=== PATIENT | female | born 1950 ===

== ENCOUNTER 2018-03-01 02:26 | Inpatient (IN) | payer MEDICARE, MEDICAID ==
--- NOTE | 2018-03-01 03:02 | C.PDOC ---
History Of Present Illness Pt sent from [place] due to low oxygen saturation,. Pt states that she does not know why she is in the hospital Family states that the nh called for low saturation . Patient denies any discomfort Time Seen by Provider: 03/01/18 03:02 Chief Complaint (Nursing): Shortness Of Breath History Per: Family History/Exam Limitations: other (dementia) Onset/Duration Of Symptoms: Hrs Current Symptoms Are (Timing): Still Present Initiating Event: Upper Respiratory Illness Exacerbating Factor(s): Coughing Current Respiratory Medications: See Home Med List Severity: Moderate Pain Scale Rating Of: 5 Associated Symptoms: Productive Cough. denies: Fever, Chills Reports Recently: Treated By A Physician Recent travel outside of the [place]: No Additional History Per: Family, Longterm Past Medical History Reviewed: Historical Data, Nursing Documentation, Vital Signs Vital Signs: Last Vital Signs Temp 98.3 F 03/01/18 02:34 Pulse 76 03/01/18 02:34 Resp 22 03/01/18 02:51 BP 110/69 03/01/18 02:34 Pulse Ox 93 L 03/01/18 04:27 - Medical History PMH: Anxiety, Dementia, Diverticulitis, HTN, Hyperlipidemia Family History: States: No Known Family Hx - Social History Hx Alcohol Use: No Hx Substance Use: No - Immunization History Hx Tetanus Toxoid Vaccination: No (unknown) Hx Influenza Vaccination: No (unknown) Hx Pneumococcal Vaccination: No (unknown) Review Of Systems Review Of Systems: ROS cannot be obtained secondary to pt's inabilty to answer questions. (dementia) Physical Exam - Physical Exam Appears: Non-toxic Skin: Warm, Dry Head: Normacephalic Eye(s): bilateral: Normal Inspection Oral Mucosa: Moist Teeth: Other (poor dentition) Throat: No Erythema Neck: Supple Chest: Symmetrical Cardiovascular: Rhythm Regular Respiratory: Decreased Breath Sounds, No Rales, Rhonchi, Wheezing (few) Gastrointestinal/Abdominal: Soft, No Tenderness, No Distention Back: No CVA Tenderness Extremity: Normal ROM Extremity: Bilateral: Atraumatic, Normal Color And Temperature, Normal ROM Pulses: Left Dorsalis Pedis: Normal, Right Dorsalis Pedis: Normal Neurological/Psych: Other (aaox2) Gait: Unable To Assess ED Course And Treatment - Laboratory Results Result Diagrams: 03/01/18 03:41 03/01/18 03:41 ECG: Interpreted By Me, Viewed By Me ECG Rhythm: Nonspecific Changes O2 Sat by Pulse Oximetry: 93 Pulse Ox Interpretation: Abnormal - Radiology CXR: Interpreted by Me, Viewed By Me CXR Interpretation: Yes: Infiltrates (rll), Cardiomegaly. No: Fracture, Pnemothorax Critical Care Time - Critical Care Note Total Time (in mins): 30 Documented critical care: time excludes all time spent performing seperately billable procedures. Disposition Discussed With Dr.: Reva Pantoja Comment: accepted the pt onhis service and took over the care at 5:36 AM Doctor Will See Patient In The: Hospital Counseled Patient/Family Regarding: Studies Performed, Diagnosis - Disposition Disposition: HOSPITALIZED Disposition Time: 03:02 Condition: GUARDED Forms: [employer] ([place]) - POA Present On Arrival: None - Clinical Impression Clinical Impression: Dyspnea, Respiratory distress, Pneumonia Decision To Admit - Pt Status Changed To: Hospital Disposition Of: Inpatient - Admit Certification Admit to Inpatient:: After my assessment, the patient will require hospitalization for at least two midnights. This is because of the severity of symptoms shown, intensity of services needed, and/or the medical risk in this patient being treated as an outpatient. - InPatient: Physician Admission Certification: I certify that this patient requires 2 or more midnights of care for the following reason:: After my assessment, the patient will require hospitalization for at least two midnights. This is because of the severity of symptoms shown, intensity of services needed, and/or the medical risk in this patient being treated as an outpatient. - . Bed Request Type: Regular Admitting Physician: Reva Pantoja Patient Diagnosis: Dyspnea, Respiratory distress, Pneumonia
[2018-03-01 03:44] LABS: BASO # 0.1 K/uL (0.0-0.2); BASO % 1.3 % (0.0-2.0); EOS # 0.8 K/uL (0.0-0.7); EOS % 12.5 % (0.0-4.0); HEMOGLOBIN 13.2 g/dL (11.0-16.0); LYMPH # 1.6 K/uL (1.0-4.3); LYMPH % 26.4 % (20.0-40.0); MEAN CELL VOLUME 93.3 fL (81.0-99.0); MEAN CORPUSCULAR HEMOGLOBIN 31.3 pg (27.0-31.0); MEAN CORPUSCULAR HGB CONC 33.6 g/dL (33.0-37.0); MEAN PLATELET VOLUME 10.1 fL (7.2-11.7); MONO # 0.4 K/uL (0.0-0.8); NEUT # 3.2 K/uL (1.8-7.0); NEUT % 52.8 % (50.0-75.0); NRBC % 0.1 % (0.0-2.0); RBC 4.22 Mil/uL (3.80-5.20); RED CELL DISTRIBUTION WIDTH 14.4 % (11.5-14.5)
[2018-03-01 03:51] LABS: INR 1.2; PROTHROMBIN TIME 13.5 SECONDS (9.7-12.2)
[2018-03-01] MEDS ORDERED: Albuterol-Ipratrop 3 mg / 0.5 (3 ml) UD ONE (03:58)
[2018-03-01 03:59] LABS: ALB/GLOB RATIO 1.1 (1.0-2.1); ALBUMIN 3.7 g/dL (3.5-5.0); ALT/SGPT 15 U/L (9-52); AST/SGOT 24 U/L (14-36); BLOOD UREA NITROGEN 13 mg/dL (7-17); CALCIUM 9.8 mg/dl (8.6-10.4); GFR NON-AFRICAN AMERICAN > 60
[2018-03-01] MEDS: Albuterol-Ipratrop 3 mg / 0.5 (3 ml) UD IH SCH (04:08)
[2018-03-01 04:10] LABS: B-TYPE NATRIURETIC PEPTIDE 75.2 pg/mL (0-900)
[2018-03-01 04:12] LABS: ABG ALLEN TEST POS; ARTERIAL BLOOD GAS HCO3 31.2 mmol/L (21-28); ARTERIAL BLOOD GAS PCO2 58 mm/Hg (35-45); ARTERIAL BLOOD GAS PH 7.39 (7.35-7.45); ARTERIAL BLOOD GAS PO2 86 mm/Hg (80-100); ARTERIAL BLOOD GAS TCO2 36.9 mmol/L (22-28)
[2018-03-01 05:33] LABS: SQUAMOUS EPITHIAL < 1 /hpf (0-5); URINE BACTERIA RARE (<OCC); URINE BILIRUBIN NEGATIVE (NEGATIVE); URINE CLARITY Hazy (Clear); URINE COLOR Yellow (YELLOW); URINE GLUCOSE (UA) NORMAL (Normal); URINE HYALINE CAST 0-2 /lpf (0-2); URINE LEUKOCYTE ESTERASE 1+ Leu/uL (Negative); URINE PROTEIN NEGATIVE (NEGATIVE)
[2018-03-01] MEDS ORDERED: Piperacillin/Tazobact 3.375 gm 100 ML IVPB STA (05:35)
[2018-03-01 05:38] LABS: URINE BLOOD NEGATIVE (NEGATIVE)
[2018-03-01] MEDS ORDERED: Magnesium Hydroxide Susp 30 ml UD PO PRN (09:03)
--- NOTE | 2018-03-01 10:28 | RAD ---
Date of service: 03/01/2018 PROCEDURE: CHEST RADIOGRAPH, 1 VIEW HISTORY: SOB COMPARISON: None available. FINDINGS: LUNGS: Pulmonary vascular congestion. PLEURA: No pneumothorax or pleural fluid seen. CARDIOVASCULAR: Normal. OSSEOUS STRUCTURES: Degenerative changes. VISUALIZED UPPER ABDOMEN: Normal. OTHER FINDINGS: None. IMPRESSION: Pulmonary vascular congestion. No focal consolidation or pleural effusion.
[2018-03-01] MEDS: Enoxaparin 40 mg Syringe SC SCH (10:57)
[2018-03-01] MEDS: Multiple Vitamins Tab PO SCH (10:57)
[2018-03-01] MEDS: Pantoprazole 40 mg EC Tab PO SCH (10:57)
[2018-03-01] MEDS: Azithromycin 500 MG in Sodium Chloride 0.9% 250 ML IVPB SCH (11:17)
[2018-03-01] MEDS: Albuterol-Ipratrop 3 mg / 0.5 (3 ml) UD INH SCH ×4 (12:13→23:59)
--- NOTE | 2018-03-01 13:06 | CP.PCM.CON ---
History of Present Illness - History of Present Illness History of Present Illness: Pulmonary Evaluation, Covering Dr Mcmillan The patient was Seen/interviewed and examined by me at the bedside, Medical records reviewed and Management issues were discussed and formulated with the house staff. Events reviewed 68 years old Female with PMHx of Anxiety, Dementia, Diverticulitis, HTN, Hyperlipidemia Who was sent to ED from [place] due to low oxygen saturation Pt states that she does not know why she is in the hospital, but Family states that the NH called for low saturation CXR: Pulmonary vascular congestion. No focal consolidation or pleural effusion, Small bilateral pleural effusions CAT scan of the chest consistent with by basilar pneumonia Patient started on broad spectrum antibiotics, Lasix and Nabulizer He is awake, Mild respiratory Distress,mildlytachycardia Hypoxemis noted, Saturation 86-90% on nasal cannula 2L Will start High flow nasal cannula Afebrile Started on IV Vanco, Zosyn, Nabulizer and 40 mg IV Lasix daily Review of Systems - Review of Systems Systems not reviewed;Unavailable: Uncooperative - Constitutional Constitutional: As Per HPI, Fatigue, Fever. absent: Chills, Daytime Sleepiness , Excessive Sweating, Frequent Falls - Cardiovascular Cardiovascular: absent: Chest Pain, Chest Pain at Rest, Chest Pain with Activity , Claudication, Diaphoresis - Respiratory Respiratory: Cough, Dyspnea, Dyspnea on Exertion. absent: Hemoptysis, Wheezing , Snoring - Gastrointestinal Gastrointestinal: absent: Abdominal Pain, Coffee Ground Emesis, Melena, Vomiting Past Patient History - Infectious Disease Hx of Infectious Diseases: None - Past Social History Smoking Status: Never Smoked - CARDIAC Hx Hypertension: Yes - NEUROLOGICAL Hx Dementia: Yes - ENDOCRINE/METABOLIC Hx Diabetes Mellitus Type 1: Yes - MUSCULOSKELETAL/RHEUMATOLOGICAL Hx Musculoskeletal Disorders: Yes Hx Osteoarthritis: Yes - GASTROINTESTINAL Hx Diverticulitis: Yes - PSYCHIATRIC Hx Anxiety: Yes Hx Substance Use: No - SURGICAL HISTORY Hx Surgeries: Yes Hx Hysterectomy: Yes - ANESTHESIA Hx Anesthesia: No Meds Allergies/Adverse Reactions: Allergies Allergy/AdvReac Type Severity Reaction Status Date / Time No Known Allergies Allergy Unverified 03/01/18 02:43 - Medications Medications: Current Medications Acetaminophen (Tylenol 325mg Tab) 650 mg PO Q6 PRN PRN Reason: Pain, Mild (1-3) Albuterol/Ipratropium (Duoneb 3 Mg/0.5 Mg (3 Ml) Ud) 3 ml INH RQ4 JORGE Last Admin: 03/01/18 12:13 Dose: 3 ml Aspirin (Aspirin) 325 mg PO DAILY [facility] Docusate Sodium (Colace) 100 mg PO TID [facility] Last Admin: 03/01/18 10:57 Dose: 100 mg Donepezil HCl (Aricept) 10 mg PO HS [facility] Enoxaparin Sodium (Lovenox) 40 mg SC DAILY [facility] Last Admin: 03/01/18 10:57 Dose: 40 mg Folic Acid (Folic Acid) 1 mg PO DAILY [facility] Last Admin: 03/01/18 10:57 Dose: 1 mg Furosemide (Lasix) 40 mg IVP DAILY [facility] Last Admin: 03/01/18 10:57 Dose: 40 mg Azithromycin 500 mg/ Sodium (Chloride) 250 mls @ 250 mls/hr IVPB DAILY [facility] PRN Reason: Protocol Last Admin: 03/01/18 11:17 Dose: 250 mls/hr Ceftriaxone Sodium 1 gm/ (Sodium Chloride) 100 mls @ 100 mls/hr IVPB DAILY@ 1200 JORGE PRN Reason: Protocol Last Admin: 03/01/18 11:27 Dose: 100 mls/hr Magnesium Hydroxide (Milk Of Magnesia) 30 ml PO DAILY PRN PRN Reason: Constipation Memantine (Namenda) 10 mg PO BID [facility] Last Admin: 03/01/18 10:57 Dose: 10 mg Methotrexate (Methotrexate) 2.5 mg PO QWK [facility] Last Admin: 03/01/18 11:01 Dose: 2.5 mg Multivitamins (Hexavitamin) 1 tab PO DAILY [facility] Last Admin: 03/01/18 10:57 Dose: 1 tab Pantoprazole Sodium (Protonix Ec Tab) 40 mg PO DAILY [facility] Last Admin: 03/01/18 10:57 Dose: 40 mg Rosuvastatin Calcium (Crestor) 40 mg PO HS [facility] Physical Exam - Constitutional Appears: In Acute Distress (Mild respiratory Distress, mildlytachycardia) - Head Exam Head Exam: ATRAUMATIC, NORMAL INSPECTION - Eye Exam Eye Exam: Conjunctival injection, Normal appearance Pupil Exam: NORMAL ACCOMODATION, PERRL - ENT Exam ENT Exam: Mucous Membranes Moist - Neck Exam Neck exam: Positive for: Full Rom, Normal Inspection. Negative for: Lymphadenopathy, Meningismus - Respiratory Exam Respiratory Exam: Accessory Muscle Use, Rales, Rhonchi, Respiratory Distress ( Mild respiratory Distress, mildlytachycardia). absent: Chest Wall Tenderness, Decreased Breath Sounds, Clear to Auscultation Bilateral, Prolonged Expiratory Phase, Wheezes - Cardiovascular Exam Cardiovascular Exam: Tachycardia, REGULAR RHYTHM, RRR, +S1, +S2. absent: Irregular Rhythm, JVD - GI/Abdominal Exam GI & Abdominal Exam: Normal Bowel Sounds. absent: Distended, Firm, Guarding, Hernia, Hyperactive Bowel Sounds - Back Exam Back exam: absent: CVA tenderness (L), CVA tenderness (R) - Neurological Exam Neurological exam: Alert, Altered, CN II-XII Intact Results - Vital Signs Recent Vital Signs: Last Vital Signs Temp 98.4 F 03/01/18 08:30 Pulse 66 03/01/18 08:30 Resp 20 03/01/18 08:30 BP 115/72 03/01/18 10:57 Pulse Ox 96 03/01/18 08:30 - Labs Result Diagrams: 03/05/18 11:00 03/05/18 11:00 Labs: Laboratory Results - last 24 hr 03/01/18 03/01/18 03/01/18 03:41 03:41 03:41 WBC 6.0 RBC 4.22 Hgb 13.2 Hct 39.4 MCV 93.3 MCH 31.3 H MCHC 33.6 RDW 14.4 Plt Count 245 MPV 10.1 Neut % (Auto) 52.8 Lymph % (Auto) 26.4 [place] % (Auto) 7.0 Eos % (Auto) 12.5 H Baso % (Auto) 1.3 Neut # (Auto) 3.2 Lymph # (Auto) 1.6 [place] # (Auto) 0.4 Eos # (Auto) 0.8 H Baso # (Auto) 0.1 PT 13.5 H INR 1.2 APTT 37 H Puncture Site pCO2 pO2 HCO3 ABG pH ABG Total CO2 ABG O2 Saturation ABG Base Excess Jonathan Test ABG Potassium Glucose Lactate Liter Flow Sodium 148 Potassium 3.8 Chloride 102 Carbon Dioxide 37 H Anion Gap 13 BUN 13 Creatinine 0.6 L Est GFR ( Amer) > 60 Est GFR (Non-Af Amer) > 60 POC Glucose (mg/dL) Random Glucose 101 Calcium 9.8 Magnesium 1.9 Total Bilirubin 0.3 AST 24 ALT 15 Alkaline Phosphatase 53 Troponin I < 0.0120 NT-Pro-B Natriuret Pep 75.2 Total Protein 7.2 Albumin 3.7 Globulin 3.5 Albumin/Globulin Ratio 1.1 Arterial Blood Potassium Urine Color Urine Clarity Urine pH Ur Specific [place] Urine Protein Urine Glucose (UA) Urine Ketones Urine Blood Urine Nitrate Urine Bilirubin Urine Urobilinogen Ur Leukocyte Esterase Urine WBC (Auto) Urine RBC (Auto) Ur Squamous Epith Cells Urine Bacteria Hyaline Casts 03/01/18 03/01/18 03/01/18 03:51 05:25 11:51 WBC RBC Hgb Hct MCV MCH MCHC RDW Plt Count MPV Neut % (Auto) Lymph % (Auto) [place] % (Auto) Eos % (Auto) Baso % (Auto) Neut # (Auto) Lymph # (Auto) [place] # (Auto) Eos # (Auto) Baso # (Auto) PT INR APTT Puncture Site R rad pCO2 58 H pO2 86 HCO3 31.2 H ABG pH 7.39 ABG Total CO2 36.9 H ABG O2 Saturation 98.0 ABG Base Excess 8.1 H Jonathan Test Pos ABG Potassium 3.4 L Glucose 99 Lactate 1.1 Liter Flow 7.0 Sodium 144.0 Potassium Chloride 108.0 H Carbon Dioxide Anion Gap BUN Creatinine Est GFR ( Amer) Est GFR (Non-Af Amer) POC Glucose (mg/dL) Random Glucose Calcium Magnesium Total Bilirubin AST ALT Alkaline Phosphatase Troponin I NT-Pro-B Natriuret Pep 60.6 Total Protein Albumin Globulin Albumin/Globulin Ratio Arterial Blood Potassium 3.4 L Urine Color Yellow Urine Clarity Hazy Urine pH 5.0 Ur Specific [place] 1.025 Urine Protein Negative Urine Glucose (UA) Normal Urine Ketones Negative Urine Blood Negative Urine Nitrate Negative Urine Bilirubin Negative Urine Urobilinogen 4.0 H Ur Leukocyte Esterase 1+ H Urine WBC (Auto) 18 H Urine RBC (Auto) 1 Ur Squamous Epith Cells < 1 Urine Bacteria Rare Hyaline Casts 0-2 03/01/18 12:01 WBC RBC Hgb Hct MCV MCH MCHC RDW Plt Count MPV Neut % (Auto) Lymph % (Auto) [place] % (Auto) Eos % (Auto) Baso % (Auto) Neut # (Auto) Lymph # (Auto) [place] # (Auto) Eos # (Auto) Baso # (Auto) PT INR APTT Puncture Site pCO2 pO2 HCO3 ABG pH ABG Total CO2 ABG O2 Saturation ABG Base Excess Jonathan Test ABG Potassium Glucose Lactate Liter Flow Sodium Potassium Chloride Carbon Dioxide Anion Gap BUN Creatinine Est GFR ( Amer) Est GFR (Non-Af Amer) POC Glucose (mg/dL) 91 Random Glucose Calcium Magnesium Total Bilirubin AST ALT Alkaline Phosphatase Troponin I NT-Pro-B Natriuret Pep Total Protein Albumin Globulin Albumin/Globulin Ratio Arterial Blood Potassium Urine Color Urine Clarity Urine pH Ur Specific [place] Urine Protein Urine Glucose (UA) Urine Ketones Urine Blood Urine Nitrate Urine Bilirubin Urine Urobilinogen Ur Leukocyte Esterase Urine WBC (Auto) Urine RBC (Auto) Ur Squamous Epith Cells Urine Bacteria Hyaline Casts Assessment & Plan (1) Respiratory distress Status: Acute Priority: High (2) Dyspnea Status: Acute Priority: High (3) Pneumonia Status: Acute Priority: High - Assessment and Plan (Free Text) Assessment: Continue Antibiotics Start nebulizer treatment Gentle diuresis Will continue IV Vanco, Zosyn, Nabulizer and 40 mg IV Lasix daily Will start High flow nasal cannula Aggressive pulmonary toilet HOB elevation Maintain aspiration precautions OOB Echocardiogram
--- NOTE | 2018-03-01 14:15 | CP.PCM.HP ---
History of Present Illness - History of Present Illness History of Present Illness: 68 year old female patient with PMH of HTN, Hyperlipidemia, Diverticulits, Dementia and anxiety is sent from the [place] due to low oxygen saturation. Patient is puzzled that why she is the hospital,; according to the NH patient was brought here because of low oxygen saturation. At present patient denies any discomfort. Present on Admission - Present on Admission Any Indicators Present on Admission: No Past Patient History - Infectious Disease Hx of Infectious Diseases: None - Past Social History Smoking Status: Never Smoked - CARDIAC Hx Hypertension: Yes - NEUROLOGICAL Hx Dementia: Yes - ENDOCRINE/METABOLIC Hx Diabetes Mellitus Type 1: Yes - MUSCULOSKELETAL/RHEUMATOLOGICAL Hx Musculoskeletal Disorders: Yes Hx Osteoarthritis: Yes - GASTROINTESTINAL Hx Diverticulitis: Yes - PSYCHIATRIC Hx Anxiety: Yes Hx Substance Use: No - SURGICAL HISTORY Hx Surgeries: Yes Hx Hysterectomy: Yes - ANESTHESIA Hx Anesthesia: No Meds Allergies/Adverse Reactions: Allergies Allergy/AdvReac Type Severity Reaction Status Date / Time No Known Allergies Allergy Unverified 03/01/18 02:43 Physical Exam - Constitutional Appears: Well - Head Exam Head Exam: ATRAUMATIC, NORMAL INSPECTION, NORMOCEPHALIC - Eye Exam Eye Exam: EOMI, Normal appearance, PERRL Pupil Exam: NORMAL ACCOMODATION, PERRL - ENT Exam ENT Exam: Mucous Membranes Moist, Normal Exam - Neck Exam Neck exam: Positive for: Normal Inspection - Respiratory Exam Respiratory Exam: Decreased Breath Sounds - Cardiovascular Exam Cardiovascular Exam: REGULAR RHYTHM, +S1, +S2 - GI/Abdominal Exam GI & Abdominal Exam: Diminished Bowel Sounds, Soft - Rectal Exam Rectal Exam: Deferred Results - Vital Signs Recent Vital Signs: Last Vital Signs Temp 98.4 F 03/01/18 08:30 Pulse 85 03/01/18 13:35 Resp 22 03/01/18 13:34 BP 115/72 03/01/18 10:57 Pulse Ox 96 03/01/18 08:30 - Labs Result Diagrams: 03/01/18 03:41 03/01/18 03:41 Labs: Laboratory Results - last 24 hr 03/01/18 03/01/18 03/01/18 03:41 03:41 03:41 WBC 6.0 RBC 4.22 Hgb 13.2 Hct 39.4 MCV 93.3 MCH 31.3 H MCHC 33.6 RDW 14.4 Plt Count 245 MPV 10.1 Neut % (Auto) 52.8 Lymph % (Auto) 26.4 [place] % (Auto) 7.0 Eos % (Auto) 12.5 H Baso % (Auto) 1.3 Neut # (Auto) 3.2 Lymph # (Auto) 1.6 [place] # (Auto) 0.4 Eos # (Auto) 0.8 H Baso # (Auto) 0.1 PT 13.5 H INR 1.2 APTT 37 H Puncture Site pCO2 pO2 HCO3 ABG pH ABG Total CO2 ABG O2 Saturation ABG Base Excess Jonathan Test ABG Potassium Glucose Lactate Liter Flow Sodium 148 Potassium 3.8 Chloride 102 Carbon Dioxide 37 H Anion Gap 13 BUN 13 Creatinine 0.6 L Est GFR ( Amer) > 60 Est GFR (Non-Af Amer) > 60 POC Glucose (mg/dL) Random Glucose 101 Calcium 9.8 Magnesium 1.9 Total Bilirubin 0.3 AST 24 ALT 15 Alkaline Phosphatase 53 Troponin I < 0.0120 NT-Pro-B Natriuret Pep 75.2 Total Protein 7.2 Albumin 3.7 Globulin 3.5 Albumin/Globulin Ratio 1.1 Arterial Blood Potassium Urine Color Urine Clarity Urine pH Ur Specific [place] Urine Protein Urine Glucose (UA) Urine Ketones Urine Blood Urine Nitrate Urine Bilirubin Urine Urobilinogen Ur Leukocyte Esterase Urine WBC (Auto) Urine RBC (Auto) Ur Squamous Epith Cells Urine Bacteria Hyaline Casts 03/01/18 03/01/18 03/01/18 03:51 05:25 11:51 WBC RBC Hgb Hct MCV MCH MCHC RDW Plt Count MPV Neut % (Auto) Lymph % (Auto) [place] % (Auto) Eos % (Auto) Baso % (Auto) Neut # (Auto) Lymph # (Auto) [place] # (Auto) Eos # (Auto) Baso # (Auto) PT INR APTT Puncture Site R rad pCO2 58 H pO2 86 HCO3 31.2 H ABG pH 7.39 ABG Total CO2 36.9 H ABG O2 Saturation 98.0 ABG Base Excess 8.1 H Jonathan Test Pos ABG Potassium 3.4 L Glucose 99 Lactate 1.1 Liter Flow 7.0 Sodium 144.0 Potassium Chloride 108.0 H Carbon Dioxide Anion Gap BUN Creatinine Est GFR ( Amer) Est GFR (Non-Af Amer) POC Glucose (mg/dL) Random Glucose Calcium Magnesium Total Bilirubin AST ALT Alkaline Phosphatase Troponin I NT-Pro-B Natriuret Pep 60.6 Total Protein Albumin Globulin Albumin/Globulin Ratio Arterial Blood Potassium 3.4 L Urine Color Yellow Urine Clarity Hazy Urine pH 5.0 Ur Specific [place] 1.025 Urine Protein Negative Urine Glucose (UA) Normal Urine Ketones Negative Urine Blood Negative Urine Nitrate Negative Urine Bilirubin Negative Urine Urobilinogen 4.0 H Ur Leukocyte Esterase 1+ H Urine WBC (Auto) 18 H Urine RBC (Auto) 1 Ur Squamous Epith Cells < 1 Urine Bacteria Rare Hyaline Casts 0-2 03/01/18 12:01 WBC RBC Hgb Hct MCV MCH MCHC RDW Plt Count MPV Neut % (Auto) Lymph % (Auto) [place] % (Auto) Eos % (Auto) Baso % (Auto) Neut # (Auto) Lymph # (Auto) [place] # (Auto) Eos # (Auto) Baso # (Auto) PT INR APTT Puncture Site pCO2 pO2 HCO3 ABG pH ABG Total CO2 ABG O2 Saturation ABG Base Excess Jonathan Test ABG Potassium Glucose Lactate Liter Flow Sodium Potassium Chloride Carbon Dioxide Anion Gap BUN Creatinine Est GFR ( Amer) Est GFR (Non-Af Amer) POC Glucose (mg/dL) 91 Random Glucose Calcium Magnesium Total Bilirubin AST ALT Alkaline Phosphatase Troponin I NT-Pro-B Natriuret Pep Total Protein Albumin Globulin Albumin/Globulin Ratio Arterial Blood Potassium Urine Color Urine Clarity Urine pH Ur Specific [place] Urine Protein Urine Glucose (UA) Urine Ketones Urine Blood Urine Nitrate Urine Bilirubin Urine Urobilinogen Ur Leukocyte Esterase Urine WBC (Auto) Urine RBC (Auto) Ur Squamous Epith Cells Urine Bacteria Hyaline Casts Assessment & Plan - Assessment and Plan (Free Text) Plan: Patient advised to take off the oxygen Discussed with the pulmonary Continue IV Zithromax Continue IV Rocephin Continue DuoNeb Methotrexate Chest x-ray seen Laboratory seen Chest x-ray revealed pulmonary vascular congestion no focal consolidations or effusion As ordered
--- NOTE | 2018-03-01 15:09 | CP.PCM.CON ---
History of Present Illness - History of Present Illness History of Present Illness: [place] sent [place] due to low oxygen saturation,. and fever Started on empiric IV antibiotics r/o HAP vs UTI Pt states that she does not know why she is in the hospital Family states that the vt called for low saturation . Patient denies any discomfort - Medical History PMH: Anxiety, Dementia, Diverticulitis, HTN, Hyperlipidemia severe RA Family History: States: No Known Family Hx Review of Systems - Review of Systems Systems not reviewed;Unavailable: Altered Mental Status All systems: reviewed and no additional remarkable complaints except - Constitutional Constitutional: As Per HPI - EENT Eyes: absent: As Per HPI, Blind Spots, Blurred Vision, Change in Vision, Decreased Night Vision, Diplopia, Discharge, Dry Eye, Exophthalmos, Floaters, Irritation, Itchy Eyes, Loss of Peripheral Vision, Pain, Photophobia, Requires Corrective Lenses, Sees Flashes, Spots in Vision, Tunnel Vision, Other Visual Disturbances, Loss of Vision, Other Ears: absent: As Per HPI, Decreased Hearing, Ear Discharge, Ear Pain, Tinnitus, Abnormal Hearing, Disequilibrium, Dizziness, Other Nose/Mouth/Throat: absent: As Per HPI, Epistaxis, Nasal Congestion, Nasal Discharge, Nasal Obstruction, Nasal Trauma, Nose Pain, Post Nasal Drip, Sinus Pain, Sinus Pressure, Bleeding Gums, Change in Voice, Dental Pain, Dry Mouth, Dysphagia, Halitosis, Hoarsness, Lip Swelling, Mouth Lesions, Mouth Pain, Odynophagia, Sore Throat, Throat Swelling, Tongue Swelling, Facial Pain, Neck Pain, Neck Mass, Other - Breasts Breasts: absent: As Per HPI, Change in Shape, Mass, Pain, Nipple Discharge, Nipple Inversion, Skin Changes, Swelling, Other - Cardiovascular Cardiovascular: absent: As Per HPI, Acrocyanosis, Chest Pain, Chest Pain at Rest , Chest Pain with Activity, Claudication, Diaphoresis, Dyspnea, Dyspnea on Exertion, Edema, Irregular Heart Rhythm, Pain Radiating to Arm/Neck/Jaw, Leg Edema, Leg Ulcers, Lightheadedness, Orthopnea, Palpitations, Paroxysmal Nocturnal Dyspnea, Pedal Edema, Radiating Pain, Rapid Heart Rate, Slow Heart Rate, Syncope, Other - Respiratory Respiratory: As Per HPI, Cough - Gastrointestinal Gastrointestinal: absent: As Per HPI, Abdominal Pain, Belching, Bloating, Change in Bowel Habits, Change in Stool Character, Coffee Ground Emesis, Constipation, Cramping, Diarrhea, Dyspepsia, Dysphagia, Early Satiety, Excessive Flatus, Fecal Incontinence, Heartburn, Hematemesis, Hematochezia, Loose Stools, Melena, Nausea, Odynophagia, Temesmus, Vomiting, Other - Genitourinary Genitourinary: absent: As Per HPI, Change in Urinary Stream, Difficulty Urinating, Dysuria, Flank Pain, Hematuria, Pyuria, Nocturia, Urinary Incontinence, Urinary Frequency, Urinary Hesitance, Urinary Urgency, Voiding Freq/Small Amts, Freq UTI, Hx Renal/Bladder Calculi, Hx /Renal Surgery, Bladder Distension, Other - Reproductive: Female Reproductive:Female: absent: As Per HPI, Amenorrhea, Amenorrhea/ Control, Currently Menstual, Cycle <21 Days, Cycle >35 Days, Cycle Variable, Menses 1-7 Days, Menses >/= 8 Days, Menses Variable, Cycle > 4 Weeks Between, No Menses for 6 Months, Heavy Menses, Light Menses, Normal Menses, Spotting Between Cycles , S/P Hysterectomy, Menopausal, Post Menopausal, Premenarche, Abnormal Vaginal Bleeding, Dysmenorrhea, Dyspareunia, Genital Lesions, Genital Pruritis, Pelvic Pain, Prolapse Symptoms, Sexual Dysfunction, Vaginal Discharge, Vaginal Dryness , Vaginal Odor, Vaginal Pruritis, Other - Menstruation Menstruation: absent: As Per HPI, Amenorrhea, Amenorrhea/ Control, Currently Menstual, Cycle <21 Days, Cycle >35 Days, Cycle Variable, Menses 1-7 Days, Menses >/= 8 Days, Menses Variable, Cycle > 4 Weeks Between, No Menses for 6 Months, Heavy Menses, Light Menses, Normal Menses, Spotting Between Cycles , S/P Hysterectomy, Menopausal, Post Menopausal, Premenarche, Abnormal Vaginal Bleeding, Dysmenorrhea, Other - Musculoskeletal Musculoskeletal: As Per HPI - Integumentary Integumentary: absent: As Per HPI, Acne, Alopecia, Bleeding Lesions, Change in Hair, Change in Nails, Change in Pigmentation, Changing Lesions, Dry Skin, Erythema, Furuncle, Hirsutism, Lesions, New Lesions, Non-Healing Lesions, Photosensitivity, Pruritus, Rash, Skin Pain, Skin Ulcer, Sores, Striae, Swelling , Unusual Bruising, Wounds, Jaundice, Other - Neurological Neurological: absent: As Per HPI, Abnormal Gait, Abnormal Hearing, Abnormal Movements, Abnormal Speech, Behavioral Changes, Burning Sensations, Confusion, Convulsions, Disequilibrium, Dizziness, Numbness, Focal Weakness, Frequent Falls , Headaches, Lack of Coordination, Loss of Vision, Memory Loss, Paresthesias, Radicular Pain, Restless Legs, Sensory Deficit, Syncope, Tingling, Tremor, Vertigo, Weakness, Other Visual Disturbances, Other - Psychiatric Psychiatric: absent: As Per HPI, Abnormal Sleep Pattern, Anhedonia, Anxiety, Auditory Hallucinations, Behavioral Changes, Change in Appetite, Change in Libido, Confusion, Depression, Difficulty Concentrating, Hallucinations, Homicidal Ideation, Hopelessness, Irritability, Memory Loss, Mood Swings, Panic Attacks, Paranoia, Suicidal Ideation, Visual Hallucinations, Tactile Hallucinations, Other - Endocrine Endocrine: absent: As Per HPI, Change in Body Appearance, Change in Libido, Cold Intolorance, Deepening of Voice, Excessive Sweating, Fatigue, Flushing, Heat Intolorance, Increase in Ring/Shoe/Hat Size, Palpitations, Polydipsia, Polyphagia, Polyuria, Other - Hematologic/Lymphatic Hematologic: absent: As Per HPI, Easy Bleeding, Easy Bruising, Lymphadenopathy, Other Past Patient History - Infectious Disease Hx of Infectious Diseases: None - Past Medical History & Family History Past Medical History?: Yes - Past Social History Smoking Status: Never Smoked - CARDIAC Hx Hypertension: Yes - NEUROLOGICAL Hx Dementia: Yes - ENDOCRINE/METABOLIC Hx Diabetes Mellitus Type 1: Yes - MUSCULOSKELETAL/RHEUMATOLOGICAL Hx Musculoskeletal Disorders: Yes Hx Osteoarthritis: Yes - GASTROINTESTINAL Hx Diverticulitis: Yes - PSYCHIATRIC Hx Anxiety: Yes Hx Substance Use: No - SURGICAL HISTORY Hx Surgeries: Yes Hx Hysterectomy: Yes - ANESTHESIA Hx Anesthesia: No Meds Allergies/Adverse Reactions: Allergies Allergy/AdvReac Type Severity Reaction Status Date / Time No Known Allergies Allergy Unverified 03/01/18 02:43 - Medications Medications: Current Medications Acetaminophen (Tylenol 325mg Tab) 650 mg PO Q6 PRN PRN Reason: Pain, Mild (1-3) Albuterol/Ipratropium (Duoneb 3 Mg/0.5 Mg (3 Ml) Ud) 3 ml INH RQ4 [facility] Last Admin: 03/01/18 12:13 Dose: 3 ml Aspirin (Aspirin) 325 mg PO DAILY [facility] Last Admin: 03/01/18 10:57 Dose: 325 mg Docusate Sodium (Colace) 100 mg PO TID [facility] Last Admin: 03/01/18 14:22 Dose: 100 mg Donepezil HCl (Aricept) 10 mg PO [facility] Enoxaparin Sodium (Lovenox) 40 mg SC DAILY [facility] Last Admin: 03/01/18 10:57 Dose: 40 mg Folic Acid (Folic Acid) 1 mg PO DAILY [facility] Last Admin: 03/01/18 10:57 Dose: 1 mg Furosemide (Lasix) 40 mg IVP DAILY [facility] Last Admin: 03/01/18 10:57 Dose: 40 mg Azithromycin 500 mg/ Sodium (Chloride) 250 mls @ 250 mls/hr IVPB DAILY [facility] PRN Reason: Protocol Last Admin: 03/01/18 11:17 Dose: 250 mls/hr Ceftriaxone Sodium 1 gm/ (Sodium Chloride) 100 mls @ 100 mls/hr IVPB DAILY@ 1200 [facility] PRN Reason: Protocol Last Admin: 03/01/18 11:27 Dose: 100 mls/hr Insulin Aspart (Novolog) 0 unit SC ACHS [facility] PRN Reason: Protocol Magnesium Hydroxide (Milk Of Magnesia) 30 ml PO DAILY PRN PRN Reason: Constipation Memantine (Namenda) 10 mg PO BID [facility] Last Admin: 03/01/18 10:57 Dose: 10 mg Methotrexate (Methotrexate) 2.5 mg PO QWK [facility] Last Admin: 03/01/18 11:01 Dose: 2.5 mg Multivitamins (Hexavitamin) 1 tab PO DAILY [facility] Last Admin: 03/01/18 10:57 Dose: 1 tab Pantoprazole Sodium (Protonix Ec Tab) 40 mg PO DAILY [facility] Last Admin: 03/01/18 10:57 Dose: 40 mg Pneumococcal Polyvalent Vaccine (Pneumovax 23 Vaccine) 0.5 ml IM .ONCE ONE Stop: 03/03/18 10:01 Rosuvastatin Calcium (Crestor) 40 mg PO [facility] Physical Exam - Constitutional Appears: Non-toxic, Confused, Cachectic, Chronically Ill - Head Exam Head Exam: ATRAUMATIC, NORMAL INSPECTION, NORMOCEPHALIC - Eye Exam Eye Exam: PERRL. absent: Scleral icterus - ENT Exam ENT Exam: Mucous Membranes Dry, Normal External Ear Exam, Normal Oropharynx - Neck Exam Neck exam: Negative for: Lymphadenopathy, Thyromegaly - Respiratory Exam Respiratory Exam: Decreased Breath Sounds, Rhonchi - Cardiovascular Exam Cardiovascular Exam: REGULAR RHYTHM, +S1, +S2 - GI/Abdominal Exam GI & Abdominal Exam: Diminished Bowel Sounds, Distended, Soft. absent: Tenderness - Rectal Exam Rectal Exam: Deferred - Exam Exam: NORMAL INSPECTION - Extremities Exam Extremities exam: Positive for: pedal pulses present. Negative for: calf tenderness, pedal edema, tenderness Additional comments: RA deformities feet and hands - Back Exam Back exam: absent: CVA tenderness (L), CVA tenderness (R), paraspinal tenderness - Neurological Exam Neurological exam: Alert, Altered, CN II-XII Intact - Psychiatric Exam Psychiatric exam: Depressed - Skin Skin Exam: Dry Results - Vital Signs Recent Vital Signs: Last Vital Signs Temp 98.4 F 03/01/18 08:30 Pulse 85 03/01/18 13:35 Resp 22 03/01/18 13:34 BP 115/72 03/01/18 10:57 Pulse Ox 96 03/01/18 08:30 - Labs Result Diagrams: 03/01/18 03:41 03/01/18 03:41 Labs: Laboratory Results - last 24 hr 03/01/18 03/01/18 03/01/18 03:41 03:41 03:41 WBC 6.0 RBC 4.22 Hgb 13.2 Hct 39.4 MCV 93.3 MCH 31.3 H MCHC 33.6 RDW 14.4 Plt Count 245 MPV 10.1 Neut % (Auto) 52.8 Lymph % (Auto) 26.4 [place] % (Auto) 7.0 Eos % (Auto) 12.5 H Baso % (Auto) 1.3 Neut # (Auto) 3.2 Lymph # (Auto) 1.6 [place] # (Auto) 0.4 Eos # (Auto) 0.8 H Baso # (Auto) 0.1 PT 13.5 H INR 1.2 APTT 37 H Puncture Site pCO2 pO2 HCO3 ABG pH ABG Total CO2 ABG O2 Saturation ABG Base Excess Jonathan Test ABG Potassium Glucose Lactate Liter Flow Sodium 148 Potassium 3.8 Chloride 102 Carbon Dioxide 37 H Anion Gap 13 BUN 13 Creatinine 0.6 L Est GFR ( Amer) > 60 Est GFR (Non-Af Amer) > 60 POC Glucose (mg/dL) Random Glucose 101 Calcium 9.8 Magnesium 1.9 Total Bilirubin 0.3 AST 24 ALT 15 Alkaline Phosphatase 53 Troponin I < 0.0120 NT-Pro-B Natriuret Pep 75.2 Total Protein 7.2 Albumin 3.7 Globulin 3.5 Albumin/Globulin Ratio 1.1 Procalcitonin Arterial Blood Potassium Urine Color Urine Clarity Urine pH Ur Specific [place] Urine Protein Urine Glucose (UA) Urine Ketones Urine Blood Urine Nitrate Urine Bilirubin Urine Urobilinogen Ur Leukocyte Esterase Urine WBC (Auto) Urine RBC (Auto) Ur Squamous Epith Cells Urine Bacteria Hyaline Casts 03/01/18 03/01/18 03/01/18 03:51 05:25 11:51 WBC RBC Hgb Hct MCV MCH MCHC RDW Plt Count MPV Neut % (Auto) Lymph % (Auto) [place] % (Auto) Eos % (Auto) Baso % (Auto) Neut # (Auto) Lymph # (Auto) [place] # (Auto) Eos # (Auto) Baso # (Auto) PT INR APTT Puncture Site R rad pCO2 58 H pO2 86 HCO3 31.2 H ABG pH 7.39 ABG Total CO2 36.9 H ABG O2 Saturation 98.0 ABG Base Excess 8.1 H Jonathan Test Pos ABG Potassium 3.4 L Glucose 99 Lactate 1.1 Liter Flow 7.0 Sodium 144.0 Potassium Chloride 108.0 H Carbon Dioxide Anion Gap BUN Creatinine Est GFR ( Amer) Est GFR (Non-Af Amer) POC Glucose (mg/dL) Random Glucose Calcium Magnesium Total Bilirubin AST ALT Alkaline Phosphatase Troponin I NT-Pro-B Natriuret Pep Total Protein Albumin Globulin Albumin/Globulin Ratio Procalcitonin < 0.05 L Arterial Blood Potassium 3.4 L Urine Color Yellow Urine Clarity Hazy Urine pH 5.0 Ur Specific [place] 1.025 Urine Protein Negative Urine Glucose (UA) Normal Urine Ketones Negative Urine Blood Negative Urine Nitrate Negative Urine Bilirubin Negative Urine Urobilinogen 4.0 H Ur Leukocyte Esterase 1+ H Urine WBC (Auto) 18 H Urine RBC (Auto) 1 Ur Squamous Epith Cells < 1 Urine Bacteria Rare Hyaline Casts 0-2 03/01/18 03/01/18 11:51 12:01 WBC RBC Hgb Hct MCV MCH MCHC RDW Plt Count MPV Neut % (Auto) Lymph % (Auto) [place] % (Auto) Eos % (Auto) Baso % (Auto) Neut # (Auto) Lymph # (Auto) [place] # (Auto) Eos # (Auto) Baso # (Auto) PT INR APTT Puncture Site pCO2 pO2 HCO3 ABG pH ABG Total CO2 ABG O2 Saturation ABG Base Excess Jonathan Test ABG Potassium Glucose Lactate Liter Flow Sodium Potassium Chloride Carbon Dioxide Anion Gap BUN Creatinine Est GFR ( Amer) Est GFR (Non-Af Amer) POC Glucose (mg/dL) 91 Random Glucose Calcium Magnesium Total Bilirubin AST ALT Alkaline Phosphatase Troponin I NT-Pro-B Natriuret Pep 60.6 Total Protein Albumin Globulin Albumin/Globulin Ratio Procalcitonin Arterial Blood Potassium Urine Color Urine Clarity Urine pH Ur Specific [place] Urine Protein Urine Glucose (UA) Urine Ketones Urine Blood Urine Nitrate Urine Bilirubin Urine Urobilinogen Ur Leukocyte Esterase Urine WBC (Auto) Urine RBC (Auto) Ur Squamous Epith Cells Urine Bacteria Hyaline Casts Assessment & Plan (1) Rheumatoid arthritis Status: Acute (2) Rheumatoid arthritis Status: Acute (3) Dyspnea Status: Acute (4) Pneumonia Status: Acute (5) Respiratory distress Status: Acute - Assessment and Plan (Free Text) Assessment: will send cultures and start on empiric IV antibiotics will follow with you Plan: rx as pneumonia
[2018-03-01] MEDS: (Novolog) Insulin Aspart, Recombinant 100 u/ml 10 ml vial SC SCH ×2 (17:00→21:50)
--- NOTE | 2018-03-01 20:05 | CP.PCM.PN ---
Subjective - Date & Time of Evaluation Date of Evaluation: 03/01/18 Time of Evaluation: 19:15 - Subjective Subjective: Pt sent [place] due to low oxygen saturation,. Pt states that she does not know why she is in the hospital Family states that the nh called for low saturation . Patient denies any discomfort Chief Complaint: Shortness Of Breath History Per: Family History/Exam Limitations: other (dementia) Onset/Duration Of Symptoms: Hrs Current Symptoms Are (Timing): Still Present Initiating Event: Upper Respiratory Illness Exacerbating Factor(s): Coughing Current Respiratory Medications: See Home Med List Severity: Moderate Pain Scale Rating Of: 5 Associated Symptoms: Productive Cough. denies: Fever, Chills Reports Recently: Treated By A Physician Recent travel outside of the [place]: No Additional History Per: Family, Skilled Nursing Past Medical History Reviewed: Historical Data, Nursing Documentation, Vital Signs Vital Signs: Last Vital Signs Temp 98.3 F 03/01/18 02:34 Pulse 76 03/01/18 02:34 Resp 22 03/01/18 02:51 BP 110/69 03/01/18 02:34 Pulse Ox 93 L 03/01/18 04:27 - Medical History PMH: Anxiety, Dementia, Diverticulitis, HTN, Hyperlipidemia Family History: States: No Known Family Hx - Social History Hx Alcohol Use: No Hx Substance Use: No - Immunization History Hx Tetanus Toxoid Vaccination: No (unknown) Hx Influenza Vaccination: No (unknown) Hx Pneumococcal Vaccination: No (unknown) Review Of Systems Review Of Systems: ROS cannot be obtained secondary to pt's inabilty to answer questions. (dementia) Physical Exam - Physical Exam Appears: Non-toxic Skin: Warm, Dry Head: Normacephalic Eye(s): bilateral: Normal Inspection Oral Mucosa: Moist Teeth: Other (poor dentition) Throat: No Erythema Neck: Supple Chest: Symmetrical Cardiovascular: Rhythm Regular Respiratory: Decreased Breath Sounds, No Rales, Rhonchi, Wheezing (few) Gastrointestinal/Abdominal: Soft, No Tenderness, No Distention Back: No CVA Tenderness Extremity: Normal ROM Extremity: Bilateral: Atraumatic, Normal Color And Temperature, Normal ROM Pulses: Left Dorsalis Pedis: Normal, Right Dorsalis Pedis: Normal Neurological/Psych: Other (aaox2) Gait: Unable To Assess Objective - Vital Signs/Intake and Output Vital Signs (last 24 hours): Temp Pulse Resp BP Pulse Ox 98.4 F 83 20 115/71 95 03/01/18 15:43 03/01/18 16:20 03/01/18 15:43 03/01/18 15:43 03/01/18 15:43 - Medications Medications: Current Medications Acetaminophen (Tylenol 325mg Tab) 650 mg PO Q6 PRN PRN Reason: Pain, Mild (1-3) Albuterol/Ipratropium (Duoneb 3 Mg/0.5 Mg (3 Ml) Ud) 3 ml INH RQ4 [facility] Last Admin: 03/01/18 15:18 Dose: 3 ml Aspirin (Aspirin) 325 mg PO DAILY [facility] Last Admin: 03/01/18 10:57 Dose: 325 mg Docusate Sodium (Colace) 100 mg PO TID [facility] Last Admin: 03/01/18 17:56 Dose: 100 mg Donepezil HCl (Aricept) 10 mg PO HS [facility] Enoxaparin Sodium (Lovenox) 40 mg SC DAILY [facility] Last Admin: 03/01/18 10:57 Dose: 40 mg Folic Acid (Folic Acid) 1 mg PO DAILY [facility] Last Admin: 03/01/18 10:57 Dose: 1 mg Furosemide (Lasix) 40 mg IVP DAILY [facility] Last Admin: 03/01/18 10:57 Dose: 40 mg Azithromycin 500 mg/ Sodium (Chloride) 250 mls @ 250 mls/hr IVPB DAILY [facility] PRN Reason: Protocol Last Admin: 03/01/18 11:17 Dose: 250 mls/hr Ceftriaxone Sodium 1 gm/ (Sodium Chloride) 100 mls @ 100 mls/hr IVPB DAILY@ 1200 [facility] PRN Reason: Protocol Last Admin: 03/01/18 11:27 Dose: 100 mls/hr Insulin Aspart (Novolog) 0 unit SC ACHS [facility] PRN Reason: Protocol Magnesium Hydroxide (Milk Of Magnesia) 30 ml PO DAILY PRN PRN Reason: Constipation Memantine (Namenda) 10 mg PO BID [facility] Last Admin: 03/01/18 17:56 Dose: 10 mg Methotrexate (Methotrexate) 2.5 mg PO QWK [facility] Last Admin: 03/01/18 11:01 Dose: 2.5 mg Multivitamins (Hexavitamin) 1 tab PO DAILY [facility] Last Admin: 03/01/18 10:57 Dose: 1 tab Pantoprazole Sodium (Protonix Ec Tab) 40 mg PO DAILY [facility] Last Admin: 03/01/18 10:57 Dose: 40 mg Pneumococcal Polyvalent Vaccine (Pneumovax 23 Vaccine) 0.5 ml IM .ONCE ONE Stop: 03/03/18 10:01 Rosuvastatin Calcium (Crestor) 40 mg PO HS [facility] - Labs Labs: 03/01/18 03:41 03/01/18 03:41 PT 13.5 SECONDS (9.7-12.2) H 03/01/18 03:41 INR 1.2 03/01/18 03:41 APTT 37 SECONDS (21-34) H 03/01/18 03:41 Assessment and Plan - Assessment and Plan (Free Text) Assessment: (1) Rheumatoid arthritis Status: Acute (2) Rheumatoid arthritis Status: Acute (3) Dyspnea Status: Acute (4) Pneumonia Status: Acute (5) Respiratory distress Status: Acute Dyspnea most likey non cardiac Check ECHO and ProBNP
[2018-03-02] MEDS: Albuterol-Ipratrop 3 mg / 0.5 (3 ml) UD INH SCH ×5 (04:25→20:40)
[2018-03-02] MEDS: (Novolog) Insulin Aspart, Recombinant 100 u/ml 10 ml vial SC SCH ×4 (07:35→21:38)
[2018-03-02] MEDS: Azithromycin 500 MG in Sodium Chloride 0.9% 250 ML IVPB SCH (10:10)
[2018-03-02] MEDS: Multiple Vitamins Tab PO SCH (10:11)
[2018-03-02] MEDS: Pantoprazole 40 mg EC Tab PO SCH (10:11)
[2018-03-02] MEDS: Enoxaparin 40 mg Syringe SC SCH (10:11)
--- NOTE | 2018-03-02 11:52 | CP.PCM.PN ---
Subjective - Date & Time of Evaluation Date of Evaluation: 03/02/18 Time of Evaluation: 10:00 - Subjective Subjective: iv rx in progress Objective - Vital Signs/Intake and Output Vital Signs (last 24 hours): Temp Pulse Resp BP Pulse Ox 97.5 F L 61 20 118/72 96 03/02/18 07:13 03/02/18 07:20 03/02/18 07:13 03/02/18 10:11 03/02/18 07:13 Intake and Output: 03/02/18 03/02/18 06:59 18:59 Output Total 500 Balance -500 - Medications Medications: Current Medications Acetaminophen (Tylenol 325mg Tab) 650 mg PO Q6 PRN PRN Reason: Pain, Mild (1-3) Albuterol/Ipratropium (Duoneb 3 Mg/0.5 Mg (3 Ml) Ud) 3 ml INH RQ4 [facility] Last Admin: 03/02/18 11:38 Dose: 3 ml Aspirin (Aspirin) 325 mg PO DAILY [facility] Last Admin: 03/02/18 10:11 Dose: 325 mg Docusate Sodium (Colace) 100 mg PO TID [facility] Last Admin: 03/02/18 10:11 Dose: 100 mg Donepezil HCl (Aricept) 10 mg PO HS [facility] Last Admin: 03/01/18 21:47 Dose: 10 mg Enoxaparin Sodium (Lovenox) 40 mg SC DAILY [facility] Last Admin: 03/02/18 10:11 Dose: 40 mg Folic Acid (Folic Acid) 1 mg PO DAILY [facility] Last Admin: 03/02/18 10:11 Dose: 1 mg Furosemide (Lasix) 40 mg IVP DAILY [facility] Last Admin: 03/02/18 10:11 Dose: 40 mg Azithromycin 500 mg/ Sodium (Chloride) 250 mls @ 250 mls/hr IVPB DAILY [facility] PRN Reason: Protocol Last Admin: 03/02/18 10:10 Dose: 250 mls/hr Ceftriaxone Sodium 1 gm/ (Sodium Chloride) 100 mls @ 100 mls/hr IVPB DAILY@ 1200 [facility] PRN Reason: Protocol Last Admin: 03/01/18 11:27 Dose: 100 mls/hr Insulin Aspart (Novolog) 0 unit SC ACHS [facility] PRN Reason: Protocol Last Admin: 03/02/18 07:35 Dose: Not Given Magnesium Hydroxide (Milk Of Magnesia) 30 ml PO DAILY PRN PRN Reason: Constipation Memantine (Namenda) 10 mg PO BID [facility] Last Admin: 03/02/18 10:11 Dose: 10 mg Methotrexate (Methotrexate) 2.5 mg PO QWK [facility] Last Admin: 03/01/18 11:01 Dose: 2.5 mg Multivitamins (Hexavitamin) 1 tab PO DAILY [facility] Last Admin: 03/02/18 10:11 Dose: 1 tab Pantoprazole Sodium (Protonix Ec Tab) 40 mg PO DAILY [facility] Last Admin: 03/02/18 10:11 Dose: 40 mg Pneumococcal Polyvalent Vaccine (Pneumovax 23 Vaccine) 0.5 ml IM .ONCE ONE Stop: 03/03/18 10:01 Rosuvastatin Calcium (Crestor) 40 mg PO HS [facility] Last Admin: 03/01/18 21:47 Dose: 40 mg - Labs Labs: 03/01/18 03:41 03/01/18 03:41 PT 13.5 SECONDS (9.7-12.2) H 03/01/18 03:41 INR 1.2 03/01/18 03:41 APTT 37 SECONDS (21-34) H 03/01/18 03:41 - Constitutional Appears: Non-toxic, Chronically Ill - Head Exam Head Exam: NORMOCEPHALIC - Eye Exam Eye Exam: PERRL - ENT Exam ENT Exam: Mucous Membranes Dry - Neck Exam Neck Exam: absent: Lymphadenopathy - Respiratory Exam Respiratory Exam: Decreased Breath Sounds Assessment and Plan (1) Rheumatoid arthritis Status: Acute (2) Rheumatoid arthritis Status: Acute (3) Dyspnea Status: Acute (4) Pneumonia Status: Acute (5) Respiratory distress Status: Acute
[2018-03-02] MEDS ORDERED: Iodixanol 320 MG/ML 100 ML BOTTLE IV ONE (12:34)
--- NOTE | 2018-03-02 14:20 | CT ---
Date of service: 03/02/18 CTA chest PE protocol Indication: Rule out PE Technique: Contiguous axial images were obtained through the chest with intravenous contrast enhancement. Sagittal and coronal reconstructions were generated and reviewed. This CT exam was performed using 1 or more of the following dose reduction techniques: Automated exposure control, adjustment of the MAA and/or kV according to patient size, and/or use of iterative reconstruction technique. IV Contrast: 100 mL Visipaque 320 Radiation dose (DLP): 527.88 MGy-cm. Comparison: Chest x-ray performed 03/01/18 Findings: Visualized portions of the inferior thyroid gland appear unremarkable. The mediastinal and hilar vascular structures appear within normal limits. The heart appears within normal limits of size. Sub cm mediastinal prevascular adenopathy. No large central pulmonary embolus. Tiny possible filling defect within a left upper lobe branches (series 2, image 79) may be artifactual. Small thrombus cannot be entirely excluded. Mild bronchiectasis. Bibasilar infiltrates. No pleural effusion. No pneumothorax. No suspicious pulmonary nodules measuring greater than 5 mm. Limited visualized portions of the upper abdomen: Cholecystectomy. Partially imaged at least probable left renal cyst. Osseous demineralization. Degenerative changes . Partially imaged severe L1 compression fracture deformity. Impression: No large central pulmonary embolus. Tiny possible filling defect within a left upper lobe branches (series 2, image 79) may be artifactual. Small thrombus cannot be entirely excluded. Mild bronchiectasis. Bibasilar infiltrates. Sub cm mediastinal and prevascular adenopathy. Cholecystectomy. Partially imaged at least probable left renal cyst. Partially imaged severe L1 compression fracture deformity.
--- NOTE | 2018-03-02 14:51 | CP.PCM.PN ---
Subjective - Date & Time of Evaluation Date of Evaluation: 03/02/18 Time of Evaluation: 10:00 - Subjective Subjective: patient seen and examined Patient was placed on high flow oxygen for desaturation CAT scan of the chest consistent with by basilar pneumonia Afebrile Objective - Vital Signs/Intake and Output Vital Signs (last 24 hours): Temp Pulse Resp BP Pulse Ox 97.5 F L 61 20 118/72 96 03/02/18 07:13 03/02/18 07:20 03/02/18 07:13 03/02/18 10:11 03/02/18 07:13 Intake and Output: 03/02/18 03/02/18 06:59 18:59 Output Total 500 Balance -500 - Medications Medications: Current Medications Acetaminophen (Tylenol 325mg Tab) 650 mg PO Q6 PRN PRN Reason: Pain, Mild (1-3) Albuterol/Ipratropium (Duoneb 3 Mg/0.5 Mg (3 Ml) Ud) 3 ml INH RQ4 [facility] Last Admin: 03/02/18 11:38 Dose: 3 ml Aspirin (Aspirin) 325 mg PO DAILY [facility] Last Admin: 03/02/18 10:11 Dose: 325 mg Docusate Sodium (Colace) 100 mg PO TID [facility] Last Admin: 03/02/18 14:13 Dose: 100 mg Donepezil HCl (Aricept) 10 mg PO HS [facility] Last Admin: 03/01/18 21:47 Dose: 10 mg Enoxaparin Sodium (Lovenox) 40 mg SC DAILY [facility] Last Admin: 03/02/18 10:11 Dose: 40 mg Folic Acid (Folic Acid) 1 mg PO DAILY [facility] Last Admin: 03/02/18 10:11 Dose: 1 mg Furosemide (Lasix) 40 mg IVP DAILY [facility] Last Admin: 03/02/18 10:11 Dose: 40 mg Azithromycin 500 mg/ Sodium (Chloride) 250 mls @ 250 mls/hr IVPB DAILY [facility] PRN Reason: Protocol Last Admin: 03/02/18 10:10 Dose: 250 mls/hr Ceftriaxone Sodium 1 gm/ (Sodium Chloride) 100 mls @ 100 mls/hr IVPB DAILY@ 1200 [facility] PRN Reason: Protocol Last Admin: 03/02/18 12:24 Dose: 100 mls/hr Insulin Aspart (Novolog) 0 unit SC ACHS [facility] PRN Reason: Protocol Last Admin: 03/02/18 12:11 Dose: Not Given Magnesium Hydroxide (Milk Of Magnesia) 30 ml PO DAILY PRN PRN Reason: Constipation Memantine (Namenda) 10 mg PO BID [facility] Last Admin: 03/02/18 10:11 Dose: 10 mg Methotrexate (Methotrexate) 2.5 mg PO QWK [facility] Last Admin: 03/01/18 11:01 Dose: 2.5 mg Multivitamins (Hexavitamin) 1 tab PO DAILY [facility] Last Admin: 03/02/18 10:11 Dose: 1 tab Pantoprazole Sodium (Protonix Ec Tab) 40 mg PO DAILY [facility] Last Admin: 03/02/18 10:11 Dose: 40 mg Pneumococcal Polyvalent Vaccine (Pneumovax 23 Vaccine) 0.5 ml IM .ONCE ONE Stop: 03/03/18 10:01 Rosuvastatin Calcium (Crestor) 40 mg PO HS [facility] Last Admin: 03/01/18 21:47 Dose: 40 mg - Labs Labs: 03/01/18 03:41 03/01/18 03:41 PT 13.5 SECONDS (9.7-12.2) H 03/01/18 03:41 INR 1.2 03/01/18 03:41 APTT 37 SECONDS (21-34) H 03/01/18 03:41 - Head Exam Head Exam: ATRAUMATIC, NORMOCEPHALIC - ENT Exam ENT Exam: Mucous Membranes Moist - Respiratory Exam Respiratory Exam: Decreased Breath Sounds, Rales - Cardiovascular Exam Cardiovascular Exam: REGULAR RHYTHM - GI/Abdominal Exam GI & Abdominal Exam: Soft, Normal Bowel Sounds - Neurological Exam Neurological Exam: Awake Assessment and Plan (1) Pneumonia Assessment & Plan: on high flow oxygen Discontinue ceftriaxone Start cefepime Continue azithromycin he Culture and sensitivity Lasix as needed Followup ABG and chest x-ray Status: Acute (2) Respiratory distress Status: Acute
--- NOTE | 2018-03-02 15:15 | CP.PCM.PN ---
<TenzinSriharvinder E - Last Filed: 03/02/18 15:11> Subjective - Date & Time of Evaluation Date of Evaluation: 03/02/18 Time of Evaluation: 10:20 - Subjective Subjective: Cardiology progress note ( Dr. George's service) Patient was seen and examined at bedside. Patient was resting in bed in no acute distress. Patient denies chest pain and palpitations but admits to SOB. Objective - Vital Signs/Intake and Output Vital Signs (last 24 hours): Temp Pulse Resp BP Pulse Ox 97.5 F L 61 20 118/72 96 03/02/18 07:13 03/02/18 07:20 03/02/18 07:13 03/02/18 10:11 03/02/18 07:13 Intake and Output: 03/02/18 03/02/18 06:59 18:59 Output Total 500 700 Balance -500 -700 - Medications Medications: Current Medications Acetaminophen (Tylenol 325mg Tab) 650 mg PO Q6 PRN PRN Reason: Pain, Mild (1-3) Albuterol/Ipratropium (Duoneb 3 Mg/0.5 Mg (3 Ml) Ud) 3 ml INH RQ4 [facility] Last Admin: 03/02/18 11:38 Dose: 3 ml Aspirin (Aspirin) 325 mg PO DAILY [facility] Last Admin: 03/02/18 10:11 Dose: 325 mg Docusate Sodium (Colace) 100 mg PO TID [facility] Last Admin: 03/02/18 14:13 Dose: 100 mg Donepezil HCl (Aricept) 10 mg PO HS [facility] Last Admin: 03/01/18 21:47 Dose: 10 mg Enoxaparin Sodium (Lovenox) 40 mg SC DAILY [facility] Last Admin: 03/02/18 10:11 Dose: 40 mg Folic Acid (Folic Acid) 1 mg PO DAILY [facility] Last Admin: 03/02/18 10:11 Dose: 1 mg Furosemide (Lasix) 40 mg IVP DAILY [facility] Last Admin: 03/02/18 10:11 Dose: 40 mg Azithromycin 500 mg/ Sodium (Chloride) 250 mls @ 250 mls/hr IVPB DAILY [facility] PRN Reason: Protocol Last Admin: 03/02/18 10:10 Dose: 250 mls/hr Cefepime HCl (Maxipime Iv 1 Gm Premix) 1 gm in 50 mls @ 100 mls/hr IVPB Q12H [facility] PRN Reason: Protocol Insulin Aspart (Novolog) 0 unit SC ACHS [facility] PRN Reason: Protocol Last Admin: 03/02/18 12:11 Dose: Not Given Magnesium Hydroxide (Milk Of Magnesia) 30 ml PO DAILY PRN PRN Reason: Constipation Memantine (Namenda) 10 mg PO BID [facility] Last Admin: 03/02/18 10:11 Dose: 10 mg Methotrexate (Methotrexate) 2.5 mg PO QWK [facility] Last Admin: 03/01/18 11:01 Dose: 2.5 mg Multivitamins (Hexavitamin) 1 tab PO DAILY [facility] Last Admin: 03/02/18 10:11 Dose: 1 tab Pantoprazole Sodium (Protonix Ec Tab) 40 mg PO DAILY [facility] Last Admin: 03/02/18 10:11 Dose: 40 mg Pneumococcal Polyvalent Vaccine (Pneumovax 23 Vaccine) 0.5 ml IM .ONCE ONE Stop: 03/03/18 10:01 Rosuvastatin Calcium (Crestor) 40 mg PO HS [facility] Last Admin: 03/01/18 21:47 Dose: 40 mg - Labs Labs: 03/01/18 03:41 03/01/18 03:41 PT 13.5 SECONDS (9.7-12.2) H 03/01/18 03:41 INR 1.2 03/01/18 03:41 APTT 37 SECONDS (21-34) H 03/01/18 03:41 - Constitutional Appears: No Acute Distress - Head Exam Head Exam: ATRAUMATIC - Eye Exam Eye Exam: EOMI - Respiratory Exam Respiratory Exam: Rales Additional comments: Decreased breath sound b/l in the lower lobes Mild rhonci - Cardiovascular Exam Cardiovascular Exam: REGULAR RHYTHM - GI/Abdominal Exam GI & Abdominal Exam: Soft, Normal Bowel Sounds. absent: Guarding, Rigid, Tenderness - Extremities Exam Extremities Exam: Normal Inspection. absent: Calf Tenderness, Pedal Edema - Neurological Exam Neurological Exam: Alert, Awake Assessment and Plan (1) Dyspnea Assessment & Plan: Non-cardiac related BNP and Troponin: Negative Chest X-ray (03/01/2018): Pulmonary vascular congestion. No focal consolidation or pleural effusion. Chest CT (03/02/18)- rule out PE: No large central pulmonary embolus. Tiny possible filling defect within a left upper lobe branches (series 2, image 79) may be artifactual. Small thrombus cannot be entirely excluded. Mild bronchiectasis. Bibasilar infiltrates. Sub cm mediastinal and prevascular adenopathy. Will f/u echo Medications: * Duonebs 3ML INH R4 * Lasix 40mg IV daily Further management as per pulomonology All plans and management discussed with Dr. George Status: Acute <Tonny George - Last Filed: 03/03/18 05:56> Objective - Vital Signs/Intake and Output Vital Signs (last 24 hours): Temp Pulse Resp BP Pulse Ox 98.3 F 88 19 115/63 100 03/02/18 15:20 03/03/18 03:11 03/03/18 00:30 03/02/18 15:20 03/02/18 15:20 Intake and Output: 03/02/18 03/03/18 18:59 06:59 Intake Total 800 Output Total 700 300 Balance -700 500 - Medications Medications: Current Medications Acetaminophen (Tylenol 325mg Tab) 650 mg PO Q6 PRN PRN Reason: Pain, Mild (1-3) Albuterol/Ipratropium (Duoneb 3 Mg/0.5 Mg (3 Ml) Ud) 3 ml INH RQ4 [facility] Last Admin: 03/03/18 04:38 Dose: Not Given Aspirin (Aspirin) 325 mg PO DAILY [facility] Last Admin: 03/02/18 10:11 Dose: 325 mg Docusate Sodium (Colace) 100 mg PO TID [facility] Last Admin: 03/02/18 17:23 Dose: 100 mg Donepezil HCl (Aricept) 10 mg PO HS [facility] Last Admin: 03/02/18 21:38 Dose: 10 mg Enoxaparin Sodium (Lovenox) 40 mg SC DAILY [facility] Last Admin: 03/02/18 10:11 Dose: 40 mg Folic Acid (Folic Acid) 1 mg PO DAILY [facility] Last Admin: 03/02/18 10:11 Dose: 1 mg Furosemide (Lasix) 40 mg IVP DAILY [facility] Last Admin: 03/02/18 10:11 Dose: 40 mg Azithromycin 500 mg/ Sodium (Chloride) 250 mls @ 250 mls/hr IVPB DAILY [facility] PRN Reason: Protocol Last Admin: 03/02/18 10:10 Dose: 250 mls/hr Cefepime HCl (Maxipime Iv 1 Gm Premix) 1 gm in 50 mls @ 100 mls/hr IVPB Q12H [facility] PRN Reason: Protocol Last Admin: 03/03/18 02:59 Dose: 100 mls/hr Insulin Aspart (Novolog) 0 unit SC ACHS [facility] PRN Reason: Protocol Last Admin: 03/02/18 21:38 Dose: Not Given Magnesium Hydroxide (Milk Of Magnesia) 30 ml PO DAILY PRN PRN Reason: Constipation Memantine (Namenda) 10 mg PO BID [facility] Last Admin: 03/02/18 17:23 Dose: 10 mg Methotrexate (Methotrexate) 2.5 mg PO QWK [facility] Last Admin: 03/01/18 11:01 Dose: 2.5 mg Multivitamins (Hexavitamin) 1 tab PO DAILY [facility] Last Admin: 03/02/18 10:11 Dose: 1 tab Pantoprazole Sodium (Protonix Ec Tab) 40 mg PO DAILY [facility] Last Admin: 03/02/18 10:11 Dose: 40 mg Pneumococcal Polyvalent Vaccine (Pneumovax 23 Vaccine) 0.5 ml IM .ONCE ONE Stop: 03/03/18 10:01 Rosuvastatin Calcium (Crestor) 40 mg PO HS [facility] Last Admin: 03/02/18 21:39 Dose: 40 mg - Labs Labs: 03/01/18 03:41 03/01/18 03:41 PT 13.5 SECONDS (9.7-12.2) H 03/01/18 03:41 INR 1.2 03/01/18 03:41 APTT 37 SECONDS (21-34) H 03/01/18 03:41 Assessment and Plan - Assessment and Plan (Free Text) Assessment: Patient seen and evaluated personally by wy Plan of care d/w the medical nurse and as documented
--- NOTE | 2018-03-02 15:27 | CP.PCM.PN ---
Subjective - Date & Time of Evaluation Date of Evaluation: 03/02/18 Time of Evaluation: 12:15 - Subjective Subjective: clinically same Objective - Vital Signs/Intake and Output Vital Signs (last 24 hours): Temp Pulse Resp BP Pulse Ox 97.5 F L 61 20 118/72 96 03/02/18 07:13 03/02/18 07:20 03/02/18 07:13 03/02/18 10:11 03/02/18 07:13 Intake and Output: 03/02/18 03/02/18 06:59 18:59 Output Total 500 700 Balance -500 -700 - Medications Medications: Current Medications Acetaminophen (Tylenol 325mg Tab) 650 mg PO Q6 PRN PRN Reason: Pain, Mild (1-3) Albuterol/Ipratropium (Duoneb 3 Mg/0.5 Mg (3 Ml) Ud) 3 ml INH RQ4 [facility] Last Admin: 03/02/18 11:38 Dose: 3 ml Aspirin (Aspirin) 325 mg PO DAILY [facility] Last Admin: 03/02/18 10:11 Dose: 325 mg Docusate Sodium (Colace) 100 mg PO TID [facility] Last Admin: 03/02/18 14:13 Dose: 100 mg Donepezil HCl (Aricept) 10 mg PO HS [facility] Last Admin: 03/01/18 21:47 Dose: 10 mg Enoxaparin Sodium (Lovenox) 40 mg SC DAILY [facility] Last Admin: 03/02/18 10:11 Dose: 40 mg Folic Acid (Folic Acid) 1 mg PO DAILY [facility] Last Admin: 03/02/18 10:11 Dose: 1 mg Furosemide (Lasix) 40 mg IVP DAILY [facility] Last Admin: 03/02/18 10:11 Dose: 40 mg Azithromycin 500 mg/ Sodium (Chloride) 250 mls @ 250 mls/hr IVPB DAILY [facility] PRN Reason: Protocol Last Admin: 03/02/18 10:10 Dose: 250 mls/hr Cefepime HCl (Maxipime Iv 1 Gm Premix) 1 gm in 50 mls @ 100 mls/hr IVPB Q12H [facility] PRN Reason: Protocol Insulin Aspart (Novolog) 0 unit SC ACHS [facility] PRN Reason: Protocol Last Admin: 03/02/18 12:11 Dose: Not Given Magnesium Hydroxide (Milk Of Magnesia) 30 ml PO DAILY [facility] PRN Reason: Constipation Memantine (Namenda) 10 mg PO BID [facility] Last Admin: 03/02/18 10:11 Dose: 10 mg Methotrexate (Methotrexate) 2.5 mg PO QWK [facility] Last Admin: 03/01/18 11:01 Dose: 2.5 mg Multivitamins (Hexavitamin) 1 tab PO DAILY [facility] Last Admin: 03/02/18 10:11 Dose: 1 tab Pantoprazole Sodium (Protonix Ec Tab) 40 mg PO DAILY [facility] Last Admin: 03/02/18 10:11 Dose: 40 mg Pneumococcal Polyvalent Vaccine (Pneumovax 23 Vaccine) 0.5 ml IM .ONCE ONE Stop: 03/03/18 10:01 Rosuvastatin Calcium (Crestor) 40 mg PO HS [facility] Last Admin: 03/01/18 21:47 Dose: 40 mg - Labs Labs: 03/01/18 03:41 03/01/18 03:41 PT 13.5 SECONDS (9.7-12.2) H 03/01/18 03:41 INR 1.2 03/01/18 03:41 APTT 37 SECONDS (21-34) H 03/01/18 03:41 - Constitutional Appears: Well - Head Exam Head Exam: ATRAUMATIC, NORMAL INSPECTION, NORMOCEPHALIC - Eye Exam Eye Exam: EOMI, Normal appearance, PERRL Pupil Exam: NORMAL ACCOMODATION, PERRL - ENT Exam ENT Exam: Mucous Membranes Moist, Normal Exam - Neck Exam Neck Exam: Full ROM, Normal Inspection. absent: Lymphadenopathy - Respiratory Exam Respiratory Exam: Decreased Breath Sounds - Cardiovascular Exam Cardiovascular Exam: REGULAR RHYTHM, +S1, +S2 - GI/Abdominal Exam GI & Abdominal Exam: Soft, Diminished Bowel Sounds - Rectal Exam Rectal Exam: Deferred
[2018-03-02] MEDS: Cefepime IV 1 gm in Dextrose 1 GM/50 ML BAG IVPB SCH (16:00)
[2018-03-02] MEDS ORDERED: Vancomycin 1 gm/NS 200 ml 1 GM/200 ML BAG IVPB STA (16:23)
--- NOTE | 2018-03-02 18:44 | CARD ---
APPROVED REPORT Date of service: 03/02/2018 EXAM: Two-dimensional and M-mode echocardiogram with Doppler and color Doppler. Other Information Quality : GoodRhythm : INDICATION Dyspnea Congestive Heart Failure RISK FACTORS Hypertension Hyperlipidemia 2D DIMENSIONS IVSd0.9 (0.7-1.1cm)LVDd3.3 (3.9-5.9cm) PWd0.9 (0.7-1.1cm)LVDs2.3 (2.5-4.0cm) FS (%) 29.1 %LVEF (%)57.1 (>50%) M-Mode DIMENSIONS Left Atrium (MM)3.44 (2.5-4.0cm)IVSd0.99 (0.7-1.1cm) Aortic Root3.21 (2.2-3.7cm)LVDd4.06 (4.0-5.6cm) Aortic Cusp Exc.2.20 (1.5-2.0cm)PWd0.93 (0.7-1.1cm) FS (%) 35 %LVDs2.63 (2.0-3.8cm) LVEF (%)65 (>50%) Mitral Valve MV E Pomsfrki62.2cm/sMV A Aiqjsxqs16.7cm/sE/A ratio0.8 TDI E/Lateral E'0.0E/Medial E'0.0 LEFT VENTRICLE The left ventricle is normal size. There is normal left ventricular wall thickness. The left ventricular function is normal. The left ventricular ejection fraction is 69% Paradoxical basal-inferolateral wall motion is noted. Transmitral Doppler flow pattern is Grade I-abnormal relaxation pattern. No left ventricle thrombus noted on this study. There is no ventricular septal defect visualized. There is no left ventricular aneurysm. There is no mass noted in the left ventricle. RIGHT VENTRICLE The right ventricle is normal size. There is normal right ventricular wall thickness. The right ventricular systolic function is normal. ATRIA The left atrium size is normal. The right atrium size is normal. The interatrial septum is intact with no evidence for an atrial septal defect. AORTIC VALVE The aortic valve is normal in structure and function. No aortic regurgitation is present. There is no aortic valvular stenosis. There is no aortic valvular vegetation. MITRAL VALVE The mitral valve is normal in structure and function. There is no evidence of mitral valve prolapse. There is no mitral valve stenosis. There is no mitral valve regurgitation noted. TRICUSPID VALVE The tricuspid valve is normal in structure and function. There is no tricuspid valve regurgitation noted. There is no tricuspid valve prolapse or vegetation. There is no tricuspid valve stenosis. PULMONIC VALVE The pulmonary valve is normal in structure and function. There is no pulmonic valvular regurgitation. There is no pulmonic valvular stenosis. GREAT VESSELS The aortic root is normal in size. The ascending aorta is normal in size. The pulmonary artery is normal. The IVC is normal in size and collapses >50% with inspiration. PERICARDIAL EFFUSION The pericardium appears normal. There is no pleural effusion. <Conclusion> The left ventricular function is normal. Transmitral Doppler flow pattern is Grade I. Paradoxical basal-inferolateral wall motion is noted. Normal Doppler.
[2018-03-03] MEDS: Albuterol-Ipratrop 3 mg / 0.5 (3 ml) UD INH SCH ×6 (00:29→20:10)
[2018-03-03] MEDS: Cefepime IV 1 gm in Dextrose 1 GM/50 ML BAG IVPB SCH ×2 (02:59→14:59)
[2018-03-03] MEDS: (Novolog) Insulin Aspart, Recombinant 100 u/ml 10 ml vial SC SCH ×4 (07:24→21:47)
[2018-03-03 07:39] LABS: BASO # 0.1 K/uL (0.0-0.2); BASO % 1.3 % (0.0-2.0); EOS # 0.5 K/uL (0.0-0.7); EOS % 10.8 % (0.0-4.0); HEMOGLOBIN 12.7 g/dL (11.0-16.0); LYMPH % 19.9 % (20.0-40.0); MEAN CORPUSCULAR HEMOGLOBIN 31.1 pg (27.0-31.0); MEAN CORPUSCULAR HGB CONC 33.4 g/dL (33.0-37.0); MEAN PLATELET VOLUME 9.1 fL (7.2-11.7); MONO # 0.4 K/uL (0.0-0.8); MONO % 8.2 % (0.0-10.0); NEUT # 2.9 K/uL (1.8-7.0); NEUT % 59.8 % (50.0-75.0); NRBC % 0.1 % (0.0-2.0); RBC 4.07 Mil/uL (3.80-5.20); RED CELL DISTRIBUTION WIDTH 14.1 % (11.5-14.5); WHITE BLOOD COUNT 4.9 K/uL (4.8-10.8)
[2018-03-03 08:09] LABS: ALB/GLOB RATIO 0.9 (1.0-2.1); ALBUMIN 3.5 g/dL (3.5-5.0); ALT/SGPT 23 U/L (9-52); AST/SGOT 25 U/L (14-36); BLOOD UREA NITROGEN 14 mg/dL (7-17); CALCIUM 9.1 mg/dl (8.6-10.4); GFR NON-AFRICAN AMERICAN > 60
[2018-03-03 09:12] LABS: ABG ALLEN TEST POS; ARTERIAL BLOOD GAS HCO3 35.5 mmol/L (21-28); ARTERIAL BLOOD GAS O2 SAT 98.8 % (95-98); ARTERIAL BLOOD GAS PCO2 63 mm/Hg (35-45); ARTERIAL BLOOD GAS PH 7.42 (7.35-7.45); ARTERIAL BLOOD GAS PO2 139 mm/Hg (80-100); ARTERIAL BLOOD GAS TCO2 42.8 mmol/L (22-28)
[2018-03-03] MEDS: Enoxaparin 40 mg Syringe SC SCH (09:54)
[2018-03-03] MEDS: Multiple Vitamins Tab PO SCH (09:54)
[2018-03-03] MEDS: Pantoprazole 40 mg EC Tab PO SCH (09:54)
[2018-03-03] MEDS: Azithromycin 500 MG in Sodium Chloride 0.9% 250 ML IVPB SCH (09:55)
[2018-03-03] MEDS ORDERED: Pneumococcal 23-Valent Vaccine IM ONE (10:00)
--- NOTE | 2018-03-03 11:55 | CP.PCM.PN ---
Subjective - Date & Time of Evaluation Date of Evaluation: 03/03/18 Time of Evaluation: 08:00 - Subjective Subjective: blood c/a + staph given vanco Objective - Vital Signs/Intake and Output Vital Signs (last 24 hours): Temp Pulse Resp BP Pulse Ox 98 F 74 20 106/62 98 03/03/18 08:40 03/03/18 08:40 03/03/18 08:40 03/03/18 09:55 03/03/18 08:40 Intake and Output: 03/03/18 03/03/18 06:59 18:59 Intake Total 800 200 Output Total 300 100 Balance 500 100 - Medications Medications: Current Medications Acetaminophen (Tylenol 325mg Tab) 650 mg PO Q6 PRN PRN Reason: Pain, Mild (1-3) Albuterol/Ipratropium (Duoneb 3 Mg/0.5 Mg (3 Ml) Ud) 3 ml INH RQ4 [facility] Last Admin: 03/03/18 08:15 Dose: 3 ml Aspirin (Aspirin) 325 mg PO DAILY [facility] Last Admin: 03/03/18 09:54 Dose: 325 mg Docusate Sodium (Colace) 100 mg PO TID [facility] Last Admin: 03/03/18 09:54 Dose: 100 mg Donepezil HCl (Aricept) 10 mg PO HS [facility] Last Admin: 03/02/18 21:38 Dose: 10 mg Enoxaparin Sodium (Lovenox) 40 mg SC DAILY [facility] Last Admin: 03/03/18 09:54 Dose: 40 mg Folic Acid (Folic Acid) 1 mg PO DAILY [facility] Last Admin: 03/03/18 09:54 Dose: 1 mg Furosemide (Lasix) 40 mg IVP DAILY [facility] Last Admin: 03/03/18 09:55 Dose: 40 mg Azithromycin 500 mg/ Sodium (Chloride) 250 mls @ 250 mls/hr IVPB DAILY [facility] PRN Reason: Protocol Last Admin: 03/03/18 09:55 Dose: 250 mls/hr Cefepime HCl (Maxipime Iv 1 Gm Premix) 1 gm in 50 mls @ 100 mls/hr IVPB Q12H [facility] PRN Reason: Protocol Last Admin: 03/03/18 02:59 Dose: 100 mls/hr Insulin Aspart (Novolog) 0 unit SC ACHS [facility] PRN Reason: Protocol Last Admin: 03/03/18 07:24 Dose: Not Given Magnesium Hydroxide (Milk Of Magnesia) 30 ml PO DAILY PRN PRN Reason: Constipation Memantine (Namenda) 10 mg PO BID [facility] Last Admin: 03/03/18 09:54 Dose: 10 mg Methotrexate (Methotrexate) 2.5 mg PO QWK [facility] Last Admin: 03/01/18 11:01 Dose: 2.5 mg Multivitamins (Hexavitamin) 1 tab PO DAILY [facility] Last Admin: 03/03/18 09:54 Dose: 1 tab Pantoprazole Sodium (Protonix Ec Tab) 40 mg PO DAILY [facility] Last Admin: 03/03/18 09:54 Dose: 40 mg Rosuvastatin Calcium (Crestor) 40 mg PO HS [facility] Last Admin: 03/02/18 21:39 Dose: 40 mg - Labs Labs: 03/03/18 07:25 03/03/18 07:25 PT 13.5 SECONDS (9.7-12.2) H 03/01/18 03:41 INR 1.2 03/01/18 03:41 APTT 37 SECONDS (21-34) H 03/01/18 03:41 - Constitutional Appears: Non-toxic, Chronically Ill - Head Exam Head Exam: NORMOCEPHALIC - Eye Exam Eye Exam: PERRL - ENT Exam ENT Exam: Mucous Membranes Dry - Neck Exam Neck Exam: absent: Lymphadenopathy - Respiratory Exam Respiratory Exam: Decreased Breath Sounds Assessment and Plan (1) Rheumatoid arthritis Status: Acute (2) Rheumatoid arthritis Status: Acute (3) Dyspnea Status: Acute (4) Pneumonia Status: Acute (5) Respiratory distress Status: Acute
--- NOTE | 2018-03-03 13:13 | CP.PCM.PN ---
<Jonathan Dave E - Last Filed: 03/03/18 14:13> Subjective - Date & Time of Evaluation Date of Evaluation: 03/03/18 Time of Evaluation: 09:05 - Subjective Subjective: Cardiology progress note ( Dr. George's service) Patient was seen and examined at bedside. Patient reports that she is doing well. Patient denies any discomfort or any acute or new issues. Objective - Vital Signs/Intake and Output Vital Signs (last 24 hours): Temp Pulse Resp BP Pulse Ox 98 F 78 20 106/62 94 L 03/03/18 08:40 03/03/18 12:30 03/03/18 08:40 03/03/18 09:55 03/03/18 12:30 Intake and Output: 03/03/18 03/03/18 06:59 18:59 Intake Total 800 200 Output Total 300 100 Balance 500 100 - Medications Medications: Current Medications Acetaminophen (Tylenol 325mg Tab) 650 mg PO Q6 PRN PRN Reason: Pain, Mild (1-3) Albuterol/Ipratropium (Duoneb 3 Mg/0.5 Mg (3 Ml) Ud) 3 ml INH RQ4 [facility] Last Admin: 03/03/18 08:15 Dose: 3 ml Aspirin (Aspirin) 325 mg PO DAILY [facility] Last Admin: 03/03/18 09:54 Dose: 325 mg Docusate Sodium (Colace) 100 mg PO TID [facility] Last Admin: 03/03/18 09:54 Dose: 100 mg Donepezil HCl (Aricept) 10 mg PO HS [facility] Last Admin: 03/02/18 21:38 Dose: 10 mg Enoxaparin Sodium (Lovenox) 40 mg SC DAILY [facility] Last Admin: 03/03/18 09:54 Dose: 40 mg Folic Acid (Folic Acid) 1 mg PO DAILY [facility] Last Admin: 03/03/18 09:54 Dose: 1 mg Furosemide (Lasix) 40 mg IVP DAILY [facility] Last Admin: 03/03/18 09:55 Dose: 40 mg Azithromycin 500 mg/ Sodium (Chloride) 250 mls @ 250 mls/hr IVPB DAILY [facility] PRN Reason: Protocol Last Admin: 03/03/18 09:55 Dose: 250 mls/hr Cefepime HCl (Maxipime Iv 1 Gm Premix) 1 gm in 50 mls @ 100 mls/hr IVPB Q12H [facility] PRN Reason: Protocol Last Admin: 03/03/18 02:59 Dose: 100 mls/hr Vancomycin/Sodium Chloride (Vancomycin 1 Gm/Ns 200 Ml) 1 gm in 200 mls @ 133.333 mls/hr IVPB Q24H [facility] PRN Reason: Protocol Insulin Aspart (Novolog) 0 unit SC ACHS [facility] PRN Reason: Protocol Last Admin: 03/03/18 12:24 Dose: Not Given Magnesium Hydroxide (Milk Of Magnesia) 30 ml PO DAILY PRN PRN Reason: Constipation Memantine (Namenda) 10 mg PO BID [facility] Last Admin: 03/03/18 09:54 Dose: 10 mg Methotrexate (Methotrexate) 2.5 mg PO QWK [facility] Last Admin: 03/01/18 11:01 Dose: 2.5 mg Multivitamins (Hexavitamin) 1 tab PO DAILY [facility] Last Admin: 03/03/18 09:54 Dose: 1 tab Pantoprazole Sodium (Protonix Ec Tab) 40 mg PO DAILY [facility] Last Admin: 03/03/18 09:54 Dose: 40 mg Rosuvastatin Calcium (Crestor) 40 mg PO HS [facility] Last Admin: 03/02/18 21:39 Dose: 40 mg - Labs Labs: 03/03/18 07:25 03/03/18 07:25 PT 13.5 SECONDS (9.7-12.2) H 03/01/18 03:41 INR 1.2 03/01/18 03:41 APTT 37 SECONDS (21-34) H 03/01/18 03:41 - Constitutional Appears: No Acute Distress - Head Exam Head Exam: ATRAUMATIC - Eye Exam Eye Exam: EOMI - Respiratory Exam Respiratory Exam: NORMAL BREATHING PATTERN Additional comments: Decreased breath sounds in the lower lobes B/L - Neurological Exam Neurological Exam: Alert, Awake Assessment and Plan (1) Dyspnea Assessment & Plan: Non-cardiac related Possibly secondary to Bibasilar infiltrates, bibasilar pneumonia BNP and Troponin: Negative Chest X-ray (03/01/2018): Pulmonary vascular congestion. No focal consolidation or pleural effusion. Chest CT (03/02/18)- rule out PE: No large central pulmonary embolus. Tiny possible filling defect within a left upper lobe branches (series 2, image 79) may be artifactual. Small thrombus cannot be entirely excluded. Mild bronchiectasis. Bibasilar infiltrates. Sub cm mediastinal and prevascular adenopathy. Echo (03/01/18): LV function is normal. Paradoxical basal-inferiorlateral wall motion noted. EF is 69%. Please refer to the EMR for complete impression. Medications: * Duonebs 3ML INH R4 * Lasix 40mg IV daily * Azithromycin 500mg IV daily * Cefepime 1gm IV q12h Further management as per pulomonology Status: Acute (2) Bacteremia Assessment & Plan: BC, 03/01/18: (Gram positive cocci): * Vancomycin 1gm IV Q24H * Cefepime 1gm IV Q12H Status: Acute (3) Dementia Assessment & Plan: Aricpet 10mg PO daily HS Memantine 10mg PO BID Status: Acute (4) Prophylactic measure Assessment & Plan: DVT: Lovenox 40mg SC daily GI: Protonix 40mg PO daily No further cardiac intervention at this time All plans and no management discussed with Dr. George Status: Acute <Tonny George - Last Filed: 03/03/18 23:29> Objective - Vital Signs/Intake and Output Vital Signs (last 24 hours): Temp Pulse Resp BP Pulse Ox 98.0 F 86 20 114/72 95 03/03/18 15:00 03/03/18 23:17 03/03/18 23:11 03/03/18 15:00 03/03/18 15:00 Intake and Output: 03/03/18 03/04/18 18:59 06:59 Intake Total 1000 440 Output Total 1600 350 Balance -600 90 - Medications Medications: Current Medications Acetaminophen (Tylenol 325mg Tab) 650 mg PO Q6 PRN PRN Reason: Pain, Mild (1-3) Albuterol/Ipratropium (Duoneb 3 Mg/0.5 Mg (3 Ml) Ud) 3 ml INH RQ4 [facility] Last Admin: 03/03/18 20:10 Dose: 3 ml Aspirin (Aspirin) 325 mg PO DAILY [facility] Last Admin: 03/03/18 09:54 Dose: 325 mg Docusate Sodium (Colace) 100 mg PO TID [facility] Last Admin: 03/03/18 18:08 Dose: 100 mg Donepezil HCl (Aricept) 10 mg PO HS [facility] Last Admin: 03/03/18 21:02 Dose: 10 mg Enoxaparin Sodium (Lovenox) 40 mg SC DAILY [facility] Last Admin: 03/03/18 09:54 Dose: 40 mg Folic Acid (Folic Acid) 1 mg PO DAILY [facility] Last Admin: 03/03/18 09:54 Dose: 1 mg Furosemide (Lasix) 40 mg IVP DAILY [facility] Last Admin: 03/03/18 09:55 Dose: 40 mg Azithromycin 500 mg/ Sodium (Chloride) 250 mls @ 250 mls/hr IVPB DAILY [facility] PRN Reason: Protocol Last Admin: 03/03/18 09:55 Dose: 250 mls/hr Cefepime HCl (Maxipime Iv 1 Gm Premix) 1 gm in 50 mls @ 100 mls/hr IVPB Q12H [facility] PRN Reason: Protocol Last Admin: 03/03/18 14:59 Dose: 100 mls/hr Vancomycin/Sodium Chloride (Vancomycin 1 Gm/Ns 200 Ml) 1 gm in 200 mls @ 133.333 mls/hr IVPB Q24H [facility] PRN Reason: Protocol Last Admin: 03/03/18 18:08 Dose: 133.333 mls/hr Insulin Aspart (Novolog) 0 unit SC ACHS [facility] PRN Reason: Protocol Last Admin: 03/03/18 21:47 Dose: Not Given Magnesium Hydroxide (Milk Of Magnesia) 30 ml PO DAILY PRN PRN Reason: Constipation Memantine (Namenda) 10 mg PO BID [facility] Last Admin: 03/03/18 18:08 Dose: 10 mg Methotrexate (Methotrexate) 2.5 mg PO QWK [facility] Last Admin: 03/01/18 11:01 Dose: 2.5 mg Multivitamins (Hexavitamin) 1 tab PO DAILY [facility] Last Admin: 03/03/18 09:54 Dose: 1 tab Pantoprazole Sodium (Protonix Ec Tab) 40 mg PO DAILY [facility] Last Admin: 03/03/18 09:54 Dose: 40 mg Rosuvastatin Calcium (Crestor) 40 mg PO HS [facility] Last Admin: 03/03/18 21:01 Dose: 40 mg - Labs Labs: 03/03/18 07:25 03/03/18 07:25 PT 13.5 SECONDS (9.7-12.2) H 03/01/18 03:41 INR 1.2 03/01/18 03:41 APTT 37 SECONDS (21-34) H 03/01/18 03:41 Assessment and Plan - Assessment and Plan (Free Text) Assessment: Patient seen and evaluated personally by me Plan of care d/w the anesthesiology medical doctor and as documented
--- NOTE | 2018-03-03 17:04 | CP.PCM.PN ---
Subjective - Date & Time of Evaluation Date of Evaluation: 03/03/18 Time of Evaluation: 11:30 - Subjective Subjective: clinically same Objective - Vital Signs/Intake and Output Vital Signs (last 24 hours): Temp Pulse Resp BP Pulse Ox 98.0 F 78 20 114/72 95 03/03/18 15:00 03/03/18 15:00 03/03/18 15:00 03/03/18 15:00 03/03/18 15:00 Intake and Output: 03/03/18 03/03/18 06:59 18:59 Intake Total 800 200 Output Total 300 100 Balance 500 100 - Medications Medications: Current Medications Acetaminophen (Tylenol 325mg Tab) 650 mg PO Q6 PRN PRN Reason: Pain, Mild (1-3) Albuterol/Ipratropium (Duoneb 3 Mg/0.5 Mg (3 Ml) Ud) 3 ml INH RQ4 [facility] Last Admin: 03/03/18 08:15 Dose: 3 ml Aspirin (Aspirin) 325 mg PO DAILY [facility] Last Admin: 03/03/18 09:54 Dose: 325 mg Docusate Sodium (Colace) 100 mg PO TID [facility] Last Admin: 03/03/18 14:59 Dose: 100 mg Donepezil HCl (Aricept) 10 mg PO HS [facility] Last Admin: 03/02/18 21:38 Dose: 10 mg Enoxaparin Sodium (Lovenox) 40 mg SC DAILY [facility] Last Admin: 03/03/18 09:54 Dose: 40 mg Folic Acid (Folic Acid) 1 mg PO DAILY [facility] Last Admin: 03/03/18 09:54 Dose: 1 mg Furosemide (Lasix) 40 mg IVP DAILY [facility] Last Admin: 03/03/18 09:55 Dose: 40 mg Azithromycin 500 mg/ Sodium (Chloride) 250 mls @ 250 mls/hr IVPB DAILY [facility] PRN Reason: Protocol Last Admin: 03/03/18 09:55 Dose: 250 mls/hr Cefepime HCl (Maxipime Iv 1 Gm Premix) 1 gm in 50 mls @ 100 mls/hr IVPB Q12H [facility] PRN Reason: Protocol Last Admin: 03/03/18 14:59 Dose: 100 mls/hr Vancomycin/Sodium Chloride (Vancomycin 1 Gm/Ns 200 Ml) 1 gm in 200 mls @ 133.333 mls/hr IVPB Q24H [facility] PRN Reason: Protocol Insulin Aspart (Novolog) 0 unit SC ACHS [facility] PRN Reason: Protocol Last Admin: 03/03/18 16:43 Dose: Not Given Magnesium Hydroxide (Milk Of Magnesia) 30 ml PO DAILY PRN PRN Reason: Constipation Memantine (Namenda) 10 mg PO BID [facility] Last Admin: 03/03/18 09:54 Dose: 10 mg Methotrexate (Methotrexate) 2.5 mg PO QWK [facility] Last Admin: 03/01/18 11:01 Dose: 2.5 mg Multivitamins (Hexavitamin) 1 tab PO DAILY [facility] Last Admin: 03/03/18 09:54 Dose: 1 tab Pantoprazole Sodium (Protonix Ec Tab) 40 mg PO DAILY [facility] Last Admin: 03/03/18 09:54 Dose: 40 mg Rosuvastatin Calcium (Crestor) 40 mg PO HS [facility] Last Admin: 03/02/18 21:39 Dose: 40 mg - Labs Labs: 03/03/18 07:25 03/03/18 07:25 PT 13.5 SECONDS (9.7-12.2) H 03/01/18 03:41 INR 1.2 03/01/18 03:41 APTT 37 SECONDS (21-34) H 03/01/18 03:41 - Constitutional Appears: Well - Head Exam Head Exam: ATRAUMATIC, NORMAL INSPECTION, NORMOCEPHALIC - Eye Exam Eye Exam: EOMI, Normal appearance, PERRL Pupil Exam: NORMAL ACCOMODATION, PERRL - ENT Exam ENT Exam: Mucous Membranes Moist, Normal Exam - Neck Exam Neck Exam: Full ROM, Normal Inspection. absent: Lymphadenopathy - Respiratory Exam Respiratory Exam: Decreased Breath Sounds - Cardiovascular Exam Cardiovascular Exam: REGULAR RHYTHM, +S1, +S2 - GI/Abdominal Exam GI & Abdominal Exam: Soft, Diminished Bowel Sounds - Rectal Exam Rectal Exam: Deferred
--- NOTE | 2018-03-03 17:30 | CP.PCM.PN ---
Subjective - Date & Time of Evaluation Date of Evaluation: 03/03/18 Time of Evaluation: 14:35 - Subjective Subjective: patient seen and examined lying Comfortably in no acute distress no shortness of breath Afebrile Objective - Vital Signs/Intake and Output Vital Signs (last 24 hours): Temp Pulse Resp BP Pulse Ox 98.0 F 78 20 114/72 95 03/03/18 15:00 03/03/18 15:00 03/03/18 15:00 03/03/18 15:00 03/03/18 15:00 Intake and Output: 03/03/18 03/03/18 06:59 18:59 Intake Total 800 200 Output Total 300 100 Balance 500 100 - Medications Medications: Current Medications Acetaminophen (Tylenol 325mg Tab) 650 mg PO Q6 PRN PRN Reason: Pain, Mild (1-3) Albuterol/Ipratropium (Duoneb 3 Mg/0.5 Mg (3 Ml) Ud) 3 ml INH RQ4 [facility] Last Admin: 03/03/18 08:15 Dose: 3 ml Aspirin (Aspirin) 325 mg PO DAILY [facility] Last Admin: 03/03/18 09:54 Dose: 325 mg Docusate Sodium (Colace) 100 mg PO TID [facility] Last Admin: 03/03/18 14:59 Dose: 100 mg Donepezil HCl (Aricept) 10 mg PO HS [facility] Last Admin: 03/02/18 21:38 Dose: 10 mg Enoxaparin Sodium (Lovenox) 40 mg SC DAILY [facility] Last Admin: 03/03/18 09:54 Dose: 40 mg Folic Acid (Folic Acid) 1 mg PO DAILY [facility] Last Admin: 03/03/18 09:54 Dose: 1 mg Furosemide (Lasix) 40 mg IVP DAILY [facility] Last Admin: 03/03/18 09:55 Dose: 40 mg Azithromycin 500 mg/ Sodium (Chloride) 250 mls @ 250 mls/hr IVPB DAILY [facility] PRN Reason: Protocol Last Admin: 03/03/18 09:55 Dose: 250 mls/hr Cefepime HCl (Maxipime Iv 1 Gm Premix) 1 gm in 50 mls @ 100 mls/hr IVPB Q12H [facility] PRN Reason: Protocol Last Admin: 03/03/18 14:59 Dose: 100 mls/hr Vancomycin/Sodium Chloride (Vancomycin 1 Gm/Ns 200 Ml) 1 gm in 200 mls @ 133.333 mls/hr IVPB Q24H [facility] PRN Reason: Protocol Insulin Aspart (Novolog) 0 unit SC ACHS [facility] PRN Reason: Protocol Last Admin: 03/03/18 16:43 Dose: Not Given Magnesium Hydroxide (Milk Of Magnesia) 30 ml PO DAILY PRN PRN Reason: Constipation Memantine (Namenda) 10 mg PO BID [facility] Last Admin: 03/03/18 09:54 Dose: 10 mg Methotrexate (Methotrexate) 2.5 mg PO QWK [facility] Last Admin: 03/01/18 11:01 Dose: 2.5 mg Multivitamins (Hexavitamin) 1 tab PO DAILY [facility] Last Admin: 03/03/18 09:54 Dose: 1 tab Pantoprazole Sodium (Protonix Ec Tab) 40 mg PO DAILY [facility] Last Admin: 03/03/18 09:54 Dose: 40 mg Rosuvastatin Calcium (Crestor) 40 mg PO HS [facility] Last Admin: 03/02/18 21:39 Dose: 40 mg - Labs Labs: 03/03/18 07:25 03/03/18 07:25 PT 13.5 SECONDS (9.7-12.2) H 03/01/18 03:41 INR 1.2 03/01/18 03:41 APTT 37 SECONDS (21-34) H 03/01/18 03:41 - Head Exam Head Exam: ATRAUMATIC, NORMOCEPHALIC - ENT Exam ENT Exam: Mucous Membranes Moist - Respiratory Exam Respiratory Exam: Decreased Breath Sounds - Cardiovascular Exam Cardiovascular Exam: REGULAR RHYTHM Assessment and Plan (1) Pneumonia Assessment & Plan: antibiotics Follow-up chest x-ray Clinically improving Status: Acute (2) Respiratory distress Status: Acute
[2018-03-03] MEDS: Vancomycin 1 gm/NS 200 ml 1 GM/200 ML BAG IVPB SCH (18:08)
[2018-03-04] MEDS: Albuterol-Ipratrop 3 mg / 0.5 (3 ml) UD INH SCH ×6 (00:14→19:18)
[2018-03-04] MEDS: Cefepime IV 1 gm in Dextrose 1 GM/50 ML BAG IVPB SCH ×2 (02:08→15:08)
[2018-03-04] MEDS: (Novolog) Insulin Aspart, Recombinant 100 u/ml 10 ml vial SC SCH ×4 (07:05→21:35)
[2018-03-04] MEDS: Pantoprazole 40 mg EC Tab PO SCH (10:18)
[2018-03-04] MEDS: Multiple Vitamins Tab PO SCH (10:19)
[2018-03-04] MEDS: Enoxaparin 40 mg Syringe SC SCH (10:19)
[2018-03-04] MEDS: Azithromycin 500 MG in Sodium Chloride 0.9% 250 ML IVPB SCH (10:19)
[2018-03-04 13:47] LABS: BLOOD UREA NITROGEN 16 mg/dL (7-17); CALCIUM 9.3 mg/dl (8.6-10.4); GFR NON-AFRICAN AMERICAN > 60
--- NOTE | 2018-03-04 15:38 | CP.PCM.PN ---
Subjective - Date & Time of Evaluation Date of Evaluation: 03/04/18 Time of Evaluation: 14:20 - Subjective Subjective: Patient seen and examined Remains on high flow oxygen Saturation 94% on 2 L No shortness of breath Afebrile Objective - Vital Signs/Intake and Output Vital Signs (last 24 hours): Temp Pulse Resp BP Pulse Ox 97.5 F L 71 20 128/80 99 03/04/18 08:04 03/04/18 08:04 03/04/18 10:26 03/04/18 10:19 03/04/18 08:04 Intake and Output: 03/04/18 03/04/18 06:59 18:59 Intake Total 490 700 Output Total 350 Balance 140 700 - Medications Medications: Current Medications Acetaminophen (Tylenol 325mg Tab) 650 mg PO Q6 PRN PRN Reason: Pain, Mild (1-3) Albuterol/Ipratropium (Duoneb 3 Mg/0.5 Mg (3 Ml) Ud) 3 ml INH RQ4 [facility] Last Admin: 03/04/18 13:58 Dose: 3 ml Aspirin (Aspirin) 325 mg PO DAILY [facility] Last Admin: 03/04/18 10:18 Dose: 325 mg Docusate Sodium (Colace) 100 mg PO TID [facility] Last Admin: 03/04/18 13:09 Dose: 100 mg Donepezil HCl (Aricept) 10 mg PO HS [facility] Last Admin: 03/03/18 21:02 Dose: 10 mg Enoxaparin Sodium (Lovenox) 40 mg SC DAILY [facility] Last Admin: 03/04/18 10:19 Dose: 40 mg Folic Acid (Folic Acid) 1 mg PO DAILY [facility] Last Admin: 03/04/18 10:18 Dose: 1 mg Furosemide (Lasix) 40 mg IVP DAILY [facility] Last Admin: 03/04/18 10:19 Dose: 40 mg Azithromycin 500 mg/ Sodium (Chloride) 250 mls @ 250 mls/hr IVPB DAILY [facility] PRN Reason: Protocol Last Admin: 03/04/18 10:19 Dose: 250 mls/hr Cefepime HCl (Maxipime Iv 1 Gm Premix) 1 gm in 50 mls @ 100 mls/hr IVPB Q12H [facility] PRN Reason: Protocol Last Admin: 03/04/18 15:08 Dose: 100 mls/hr Vancomycin/Sodium Chloride (Vancomycin 1 Gm/Ns 200 Ml) 1 gm in 200 mls @ 133.333 mls/hr IVPB Q24H [facility] PRN Reason: Protocol Last Admin: 03/03/18 18:08 Dose: 133.333 mls/hr Insulin Aspart (Novolog) 0 unit SC ACHS [facility] PRN Reason: Protocol Last Admin: 03/04/18 13:09 Dose: 1 units Magnesium Hydroxide (Milk Of Magnesia) 30 ml PO DAILY PRN PRN Reason: Constipation Memantine (Namenda) 10 mg PO BID [facility] Last Admin: 03/04/18 10:18 Dose: 10 mg Methotrexate (Methotrexate) 2.5 mg PO QWK [facility] Last Admin: 03/01/18 11:01 Dose: 2.5 mg Multivitamins (Hexavitamin) 1 tab PO DAILY [facility] Last Admin: 03/04/18 10:19 Dose: 1 tab Pantoprazole Sodium (Protonix Ec Tab) 40 mg PO DAILY [facility] Last Admin: 03/04/18 10:18 Dose: 40 mg Rosuvastatin Calcium (Crestor) 40 mg PO HS [facility] Last Admin: 03/03/18 21:01 Dose: 40 mg - Labs Labs: 03/03/18 07:25 03/04/18 13:43 PT 13.5 SECONDS (9.7-12.2) H 03/01/18 03:41 INR 1.2 03/01/18 03:41 APTT 37 SECONDS (21-34) H 03/01/18 03:41 - Head Exam Head Exam: ATRAUMATIC, NORMOCEPHALIC - ENT Exam ENT Exam: Mucous Membranes Moist - Neck Exam Neck Exam: Normal Inspection - Respiratory Exam Respiratory Exam: Rales - Cardiovascular Exam Cardiovascular Exam: REGULAR RHYTHM - GI/Abdominal Exam GI & Abdominal Exam: Soft, Normal Bowel Sounds Assessment and Plan (1) Pneumonia Assessment & Plan: switch 2 L nasal cannula continue IV antibiotics Continue present treatment Follow-up chest x-ray Status: Acute (2) Respiratory distress Status: Acute
--- NOTE | 2018-03-04 15:58 | RAD ---
Date of service: 03/04/2018 HISTORY: f/u COMPARISON: Portable chest 03/01/2018. FINDINGS: LUNGS: No active pulmonary disease. PLEURA: No significant pleural effusion identified, no pneumothorax apparent. CARDIOVASCULAR: Subtle interval reduction pulmonary vascular congestion is noted compatible with improved CHF. OSSEOUS STRUCTURES: No significant abnormalities. VISUALIZED UPPER ABDOMEN: Normal. OTHER FINDINGS: None. IMPRESSION: Significant CHF improvement with limited residual. No new interval findings otherwise.
[2018-03-04] MEDS: Vancomycin 1 gm/NS 200 ml 1 GM/200 ML BAG IVPB SCH (17:12)
--- NOTE | 2018-03-04 18:00 | CP.PCM.PN ---
Subjective - Date & Time of Evaluation Date of Evaluation: 03/04/18 Time of Evaluation: 09:00 - Subjective Subjective: arousable NAD Objective - Vital Signs/Intake and Output Vital Signs (last 24 hours): Temp Pulse Resp BP Pulse Ox 98.7 F 86 20 102/60 94 L 03/04/18 15:00 03/04/18 15:00 03/04/18 15:00 03/04/18 15:00 03/04/18 15:00 Intake and Output: 03/04/18 03/04/18 06:59 18:59 Intake Total 490 700 Output Total 350 Balance 140 700 - Medications Medications: Current Medications Acetaminophen (Tylenol 325mg Tab) 650 mg PO Q6 PRN PRN Reason: Pain, Mild (1-3) Albuterol/Ipratropium (Duoneb 3 Mg/0.5 Mg (3 Ml) Ud) 3 ml INH RQ4 [facility] Last Admin: 03/04/18 13:58 Dose: 3 ml Aspirin (Aspirin) 325 mg PO DAILY [facility] Last Admin: 03/04/18 10:18 Dose: 325 mg Docusate Sodium (Colace) 100 mg PO TID [facility] Last Admin: 03/04/18 17:13 Dose: 100 mg Donepezil HCl (Aricept) 10 mg PO HS [facility] Last Admin: 03/03/18 21:02 Dose: 10 mg Enoxaparin Sodium (Lovenox) 40 mg SC DAILY [facility] Last Admin: 03/04/18 10:19 Dose: 40 mg Folic Acid (Folic Acid) 1 mg PO DAILY [facility] Last Admin: 03/04/18 10:18 Dose: 1 mg Furosemide (Lasix) 40 mg IVP DAILY [facility] Last Admin: 03/04/18 10:19 Dose: 40 mg Azithromycin 500 mg/ Sodium (Chloride) 250 mls @ 250 mls/hr IVPB DAILY [facility] PRN Reason: Protocol Last Admin: 03/04/18 10:19 Dose: 250 mls/hr Cefepime HCl (Maxipime Iv 1 Gm Premix) 1 gm in 50 mls @ 100 mls/hr IVPB Q12H [facility] PRN Reason: Protocol Last Admin: 03/04/18 15:08 Dose: 100 mls/hr Vancomycin/Sodium Chloride (Vancomycin 1 Gm/Ns 200 Ml) 1 gm in 200 mls @ 133.333 mls/hr IVPB Q24H [facility] PRN Reason: Protocol Last Admin: 03/04/18 17:12 Dose: 133.333 mls/hr Insulin Aspart (Novolog) 0 unit SC ACHS [facility] PRN Reason: Protocol Last Admin: 03/04/18 17:21 Dose: Not Given Magnesium Hydroxide (Milk Of Magnesia) 30 ml PO DAILY PRN PRN Reason: Constipation Memantine (Namenda) 10 mg PO BID [facility] Last Admin: 03/04/18 17:13 Dose: 10 mg Methotrexate (Methotrexate) 2.5 mg PO QWK [facility] Last Admin: 03/01/18 11:01 Dose: 2.5 mg Multivitamins (Hexavitamin) 1 tab PO DAILY [facility] Last Admin: 03/04/18 10:19 Dose: 1 tab Pantoprazole Sodium (Protonix Ec Tab) 40 mg PO DAILY [facility] Last Admin: 03/04/18 10:18 Dose: 40 mg Rosuvastatin Calcium (Crestor) 40 mg PO HS [facility] Last Admin: 03/03/18 21:01 Dose: 40 mg - Labs Labs: 03/03/18 07:25 03/04/18 13:43 PT 13.5 SECONDS (9.7-12.2) H 03/01/18 03:41 INR 1.2 03/01/18 03:41 APTT 37 SECONDS (21-34) H 03/01/18 03:41 - Constitutional Appears: Non-toxic, Chronically Ill - Head Exam Head Exam: NORMOCEPHALIC - Eye Exam Eye Exam: PERRL - ENT Exam ENT Exam: Mucous Membranes Dry - Neck Exam Neck Exam: absent: Lymphadenopathy - Respiratory Exam Respiratory Exam: Decreased Breath Sounds - Cardiovascular Exam Cardiovascular Exam: REGULAR RHYTHM - GI/Abdominal Exam GI & Abdominal Exam: Distended, Soft - Rectal Exam Rectal Exam: Deferred - Exam Exam: NORMAL INSPECTION - Extremities Exam Extremities Exam: absent: Pedal Edema - Back Exam Back Exam: absent: CVA tenderness (L), CVA tenderness (R) - Neurological Exam Neurological Exam: Alert, Awake Assessment and Plan (1) Rheumatoid arthritis Status: Acute (2) Rheumatoid arthritis Status: Acute (3) Dyspnea Status: Acute (4) Pneumonia Status: Acute (5) Respiratory distress Status: Acute
--- NOTE | 2018-03-04 20:31 | CP.PCM.PN ---
Subjective - Date & Time of Evaluation Date of Evaluation: 03/04/18 Time of Evaluation: 10:30 - Subjective Subjective: clinically same Objective - Vital Signs/Intake and Output Vital Signs (last 24 hours): Temp Pulse Resp BP Pulse Ox 98.7 F 86 20 102/60 94 L 03/04/18 15:00 03/04/18 15:00 03/04/18 15:00 03/04/18 15:00 03/04/18 17:00 Intake and Output: 03/04/18 03/05/18 18:59 06:59 Intake Total 700 Balance 700 - Medications Medications: Current Medications Acetaminophen (Tylenol 325mg Tab) 650 mg PO Q6 PRN PRN Reason: Pain, Mild (1-3) Albuterol/Ipratropium (Duoneb 3 Mg/0.5 Mg (3 Ml) Ud) 3 ml INH RQ4 [facility] Last Admin: 03/04/18 19:18 Dose: 3 ml Aspirin (Aspirin) 325 mg PO DAILY [facility] Last Admin: 03/04/18 10:18 Dose: 325 mg Docusate Sodium (Colace) 100 mg PO TID [facility] Last Admin: 03/04/18 17:13 Dose: 100 mg Donepezil HCl (Aricept) 10 mg PO HS [facility] Last Admin: 03/03/18 21:02 Dose: 10 mg Enoxaparin Sodium (Lovenox) 40 mg SC DAILY [facility] Last Admin: 03/04/18 10:19 Dose: 40 mg Folic Acid (Folic Acid) 1 mg PO DAILY [facility] Last Admin: 03/04/18 10:18 Dose: 1 mg Furosemide (Lasix) 40 mg IVP DAILY [facility] Last Admin: 03/04/18 10:19 Dose: 40 mg Azithromycin 500 mg/ Sodium (Chloride) 250 mls @ 250 mls/hr IVPB DAILY [facility] PRN Reason: Protocol Last Admin: 03/04/18 10:19 Dose: 250 mls/hr Cefepime HCl (Maxipime Iv 1 Gm Premix) 1 gm in 50 mls @ 100 mls/hr IVPB Q12H [facility] PRN Reason: Protocol Last Admin: 03/04/18 15:08 Dose: 100 mls/hr Vancomycin/Sodium Chloride (Vancomycin 1 Gm/Ns 200 Ml) 1 gm in 200 mls @ 133.333 mls/hr IVPB Q24H [facility] PRN Reason: Protocol Last Admin: 03/04/18 17:12 Dose: 133.333 mls/hr Insulin Aspart (Novolog) 0 unit SC ACHS [facility] PRN Reason: Protocol Last Admin: 03/04/18 17:21 Dose: Not Given Magnesium Hydroxide (Milk Of Magnesia) 30 ml PO DAILY PRN PRN Reason: Constipation Memantine (Namenda) 10 mg PO BID [facility] Last Admin: 03/04/18 17:13 Dose: 10 mg Methotrexate (Methotrexate) 2.5 mg PO QWK [facility] Last Admin: 03/01/18 11:01 Dose: 2.5 mg Multivitamins (Hexavitamin) 1 tab PO DAILY [facility] Last Admin: 03/04/18 10:19 Dose: 1 tab Pantoprazole Sodium (Protonix Ec Tab) 40 mg PO DAILY [facility] Last Admin: 03/04/18 10:18 Dose: 40 mg Rosuvastatin Calcium (Crestor) 40 mg PO HS [facility] Last Admin: 03/03/18 21:01 Dose: 40 mg - Labs Labs: 03/03/18 07:25 03/04/18 13:43 PT 13.5 SECONDS (9.7-12.2) H 03/01/18 03:41 INR 1.2 03/01/18 03:41 APTT 37 SECONDS (21-34) H 03/01/18 03:41
[2018-03-05] MEDS: Albuterol-Ipratrop 3 mg / 0.5 (3 ml) UD INH SCH ×6 (00:32→19:16)
[2018-03-05] MEDS: Cefepime IV 1 gm in Dextrose 1 GM/50 ML BAG IVPB SCH ×2 (02:21→14:01)
[2018-03-05] MEDS: (Novolog) Insulin Aspart, Recombinant 100 u/ml 10 ml vial SC SCH ×4 (07:52→21:45)
[2018-03-05] MEDS: Enoxaparin 40 mg Syringe SC SCH (09:44)
[2018-03-05] MEDS: Pantoprazole 40 mg EC Tab PO SCH (09:44)
[2018-03-05] MEDS: Multiple Vitamins Tab PO SCH (09:44)
[2018-03-05] MEDS: Azithromycin 500 MG in Sodium Chloride 0.9% 250 ML IVPB SCH (09:45)
[2018-03-05 11:11] LABS: BASO # 0.1 K/uL (0.0-0.2); BASO % 0.9 % (0.0-2.0); EOS # 0.4 K/uL (0.0-0.7); EOS % 6.4 % (0.0-4.0); HEMOGLOBIN 13.5 g/dL (11.0-16.0); LYMPH % 15.5 % (20.0-40.0); MEAN CELL VOLUME 93.5 fL (81.0-99.0); MEAN CORPUSCULAR HEMOGLOBIN 31.1 pg (27.0-31.0); MEAN CORPUSCULAR HGB CONC 33.2 g/dL (33.0-37.0); MEAN PLATELET VOLUME 9.5 fL (7.2-11.7); MONO # 0.4 K/uL (0.0-0.8); MONO % 6.4 % (0.0-10.0); NEUT # 4.4 K/uL (1.8-7.0); NEUT % 70.8 % (50.0-75.0); NRBC % 0.4 % (0.0-2.0); RBC 4.33 Mil/uL (3.80-5.20); WHITE BLOOD COUNT 6.2 K/uL (4.8-10.8)
[2018-03-05 11:23] LABS: ALBUMIN 3.8 g/dL (3.5-5.0); ALT/SGPT 20 U/L (9-52); AST/SGOT 31 U/L (14-36); BLOOD UREA NITROGEN 14 mg/dL (7-17); CALCIUM 9.5 mg/dl (8.6-10.4); GFR NON-AFRICAN AMERICAN > 60
--- NOTE | 2018-03-05 16:10 | CP.PCM.PN ---
Subjective - Date & Time of Evaluation Date of Evaluation: 03/05/18 Time of Evaluation: 10:15 - Subjective Subjective: clinically same Objective - Vital Signs/Intake and Output Vital Signs (last 24 hours): Temp Pulse Resp BP Pulse Ox 97.2 F L 74 20 112/68 95 03/05/18 07:00 03/05/18 07:00 03/05/18 07:00 03/05/18 09:45 03/05/18 07:00 Intake and Output: 03/05/18 03/05/18 06:59 18:59 Intake Total 750 Output Total 0 350 Balance 0 400 - Medications Medications: Current Medications Acetaminophen (Tylenol 325mg Tab) 650 mg PO Q6 PRN PRN Reason: Pain, Mild (1-3) Albuterol/Ipratropium (Duoneb 3 Mg/0.5 Mg (3 Ml) Ud) 3 ml INH RQ4 [facility] Last Admin: 03/05/18 11:31 Dose: 3 ml Aspirin (Aspirin) 325 mg PO DAILY [facility] Last Admin: 03/05/18 09:44 Dose: 325 mg Docusate Sodium (Colace) 100 mg PO TID [facility] Last Admin: 03/05/18 13:07 Dose: 100 mg Donepezil HCl (Aricept) 10 mg PO HS [facility] Last Admin: 03/04/18 21:29 Dose: 10 mg Enoxaparin Sodium (Lovenox) 40 mg SC DAILY [facility] Last Admin: 03/05/18 09:44 Dose: 40 mg Folic Acid (Folic Acid) 1 mg PO DAILY [facility] Last Admin: 03/05/18 09:44 Dose: 1 mg Furosemide (Lasix) 40 mg IVP DAILY [facility] Last Admin: 03/05/18 09:45 Dose: 40 mg Azithromycin 500 mg/ Sodium (Chloride) 250 mls @ 250 mls/hr IVPB DAILY [facility] PRN Reason: Protocol Last Admin: 03/05/18 09:45 Dose: 250 mls/hr Cefepime HCl (Maxipime Iv 1 Gm Premix) 1 gm in 50 mls @ 100 mls/hr IVPB Q12H [facility] PRN Reason: Protocol Last Admin: 03/05/18 14:01 Dose: 100 mls/hr Vancomycin/Sodium Chloride (Vancomycin 1 Gm/Ns 200 Ml) 1 gm in 200 mls @ 133.333 mls/hr IVPB Q24H [facility] PRN Reason: Protocol Last Admin: 03/04/18 17:12 Dose: 133.333 mls/hr Insulin Aspart (Novolog) 0 unit SC ACHS [facility] PRN Reason: Protocol Last Admin: 03/05/18 13:07 Dose: 1 units Magnesium Hydroxide (Milk Of Magnesia) 30 ml PO DAILY PRN PRN Reason: Constipation Memantine (Namenda) 10 mg PO BID [facility] Last Admin: 03/05/18 09:44 Dose: 10 mg Methotrexate (Methotrexate) 2.5 mg PO QWK [facility] Last Admin: 03/01/18 11:01 Dose: 2.5 mg Multivitamins (Hexavitamin) 1 tab PO DAILY [facility] Last Admin: 03/05/18 09:44 Dose: 1 tab Pantoprazole Sodium (Protonix Ec Tab) 40 mg PO DAILY [facility] Last Admin: 03/05/18 09:44 Dose: 40 mg Rosuvastatin Calcium (Crestor) 40 mg PO HS [facility] Last Admin: 03/04/18 21:29 Dose: 40 mg - Labs Labs: 03/05/18 11:00 03/05/18 11:00 PT 13.5 SECONDS (9.7-12.2) H 03/01/18 03:41 INR 1.2 03/01/18 03:41 APTT 37 SECONDS (21-34) H 03/01/18 03:41
--- NOTE | 2018-03-05 17:46 | CP.PCM.PN ---
Subjective - Date & Time of Evaluation Date of Evaluation: 03/05/18 Time of Evaluation: 10:35 - Subjective Subjective: patient seen and examined Lying comfortably No shortness of breath or cough On nasal cannula Afebrile Objective - Vital Signs/Intake and Output Vital Signs (last 24 hours): Temp Pulse Resp BP Pulse Ox 98.3 F 94 H 20 118/73 95 03/05/18 15:05 03/05/18 15:05 03/05/18 15:05 03/05/18 15:05 03/05/18 15:05 Intake and Output: 03/05/18 03/05/18 06:59 18:59 Intake Total 750 Output Total 0 350 Balance 0 400 - Medications Medications: Current Medications Acetaminophen (Tylenol 325mg Tab) 650 mg PO Q6 PRN PRN Reason: Pain, Mild (1-3) Albuterol/Ipratropium (Duoneb 3 Mg/0.5 Mg (3 Ml) Ud) 3 ml INH RQ4 [facility] Last Admin: 03/05/18 16:13 Dose: 3 ml Aspirin (Aspirin) 325 mg PO DAILY [facility] Last Admin: 03/05/18 09:44 Dose: 325 mg Docusate Sodium (Colace) 100 mg PO TID [facility] Last Admin: 03/05/18 13:07 Dose: 100 mg Donepezil HCl (Aricept) 10 mg PO HS [facility] Last Admin: 03/04/18 21:29 Dose: 10 mg Enoxaparin Sodium (Lovenox) 40 mg SC DAILY [facility] Last Admin: 03/05/18 09:44 Dose: 40 mg Folic Acid (Folic Acid) 1 mg PO DAILY [facility] Last Admin: 03/05/18 09:44 Dose: 1 mg Furosemide (Lasix) 40 mg IVP DAILY [facility] Last Admin: 03/05/18 09:45 Dose: 40 mg Azithromycin 500 mg/ Sodium (Chloride) 250 mls @ 250 mls/hr IVPB DAILY [facility] PRN Reason: Protocol Last Admin: 03/05/18 09:45 Dose: 250 mls/hr Cefepime HCl (Maxipime Iv 1 Gm Premix) 1 gm in 50 mls @ 100 mls/hr IVPB Q12H [facility] PRN Reason: Protocol Last Admin: 03/05/18 14:01 Dose: 100 mls/hr Vancomycin/Sodium Chloride (Vancomycin 1 Gm/Ns 200 Ml) 1 gm in 200 mls @ 133.333 mls/hr IVPB Q24H [facility] PRN Reason: Protocol Last Admin: 03/04/18 17:12 Dose: 133.333 mls/hr Insulin Aspart (Novolog) 0 unit SC ACHS [facility] PRN Reason: Protocol Last Admin: 03/05/18 13:07 Dose: 1 units Magnesium Hydroxide (Milk Of Magnesia) 30 ml PO DAILY PRN PRN Reason: Constipation Memantine (Namenda) 10 mg PO BID [facility] Last Admin: 03/05/18 09:44 Dose: 10 mg Methotrexate (Methotrexate) 2.5 mg PO QWK [facility] Last Admin: 03/01/18 11:01 Dose: 2.5 mg Multivitamins (Hexavitamin) 1 tab PO DAILY [facility] Last Admin: 03/05/18 09:44 Dose: 1 tab Pantoprazole Sodium (Protonix Ec Tab) 40 mg PO DAILY [facility] Last Admin: 03/05/18 09:44 Dose: 40 mg Rosuvastatin Calcium (Crestor) 40 mg PO HS [facility] Last Admin: 03/04/18 21:29 Dose: 40 mg - Labs Labs: 03/05/18 11:00 03/05/18 11:00 PT 13.5 SECONDS (9.7-12.2) H 03/01/18 03:41 INR 1.2 03/01/18 03:41 APTT 37 SECONDS (21-34) H 03/01/18 03:41 - Head Exam Head Exam: ATRAUMATIC, NORMOCEPHALIC - ENT Exam ENT Exam: Mucous Membranes Moist - Neck Exam Neck Exam: Normal Inspection - Cardiovascular Exam Cardiovascular Exam: REGULAR RHYTHM - GI/Abdominal Exam GI & Abdominal Exam: Soft Assessment and Plan (1) Pneumonia Assessment & Plan: Consider switching to p.o. antibiotics Continue present treat Status: Acute (2) Respiratory distress Status: Acute
[2018-03-05] MEDS: Vancomycin 1 gm/NS 200 ml 1 GM/200 ML BAG IVPB SCH (17:50)
--- NOTE | 2018-03-05 19:40 | CP.PCM.PN ---
Subjective - Date & Time of Evaluation Date of Evaluation: 03/05/18 Time of Evaluation: 09:00 - Subjective Subjective: less sob alert nad iv rx in rogress Objective - Vital Signs/Intake and Output Vital Signs (last 24 hours): Temp Pulse Resp BP Pulse Ox 98.3 F 94 H 20 118/73 95 03/05/18 15:05 03/05/18 15:05 03/05/18 15:05 03/05/18 15:05 03/05/18 15:05 Intake and Output: 03/05/18 03/06/18 18:59 06:59 Intake Total 750 Output Total 350 Balance 400 - Medications Medications: Current Medications Acetaminophen (Tylenol 325mg Tab) 650 mg PO Q6 PRN PRN Reason: Pain, Mild (1-3) Albuterol/Ipratropium (Duoneb 3 Mg/0.5 Mg (3 Ml) Ud) 3 ml INH RQ4 [facility] Last Admin: 03/05/18 19:16 Dose: 3 ml Aspirin (Aspirin) 325 mg PO DAILY [facility] Last Admin: 03/05/18 09:44 Dose: 325 mg Docusate Sodium (Colace) 100 mg PO TID [facility] Last Admin: 03/05/18 18:06 Dose: 100 mg Donepezil HCl (Aricept) 10 mg PO HS [facility] Last Admin: 03/04/18 21:29 Dose: 10 mg Enoxaparin Sodium (Lovenox) 40 mg SC DAILY [facility] Last Admin: 03/05/18 09:44 Dose: 40 mg Folic Acid (Folic Acid) 1 mg PO DAILY [facility] Last Admin: 03/05/18 09:44 Dose: 1 mg Furosemide (Lasix) 40 mg IVP DAILY [facility] Last Admin: 03/05/18 09:45 Dose: 40 mg Azithromycin 500 mg/ Sodium (Chloride) 250 mls @ 250 mls/hr IVPB DAILY [facility] PRN Reason: Protocol Last Admin: 03/05/18 09:45 Dose: 250 mls/hr Cefepime HCl (Maxipime Iv 1 Gm Premix) 1 gm in 50 mls @ 100 mls/hr IVPB Q12H [facility] PRN Reason: Protocol Last Admin: 03/05/18 14:01 Dose: 100 mls/hr Vancomycin/Sodium Chloride (Vancomycin 1 Gm/Ns 200 Ml) 1 gm in 200 mls @ 133.333 mls/hr IVPB Q24H [facility] PRN Reason: Protocol Last Admin: 03/05/18 17:50 Dose: 133.333 mls/hr Insulin Aspart (Novolog) 0 unit SC ACHS [facility] PRN Reason: Protocol Last Admin: 03/05/18 17:10 Dose: Not Given Magnesium Hydroxide (Milk Of Magnesia) 30 ml PO DAILY [facility] PRN Reason: Constipation Memantine (Namenda) 10 mg PO BID [facility] Last Admin: 03/05/18 18:06 Dose: 10 mg Methotrexate (Methotrexate) 2.5 mg PO QWK [facility] Last Admin: 03/01/18 11:01 Dose: 2.5 mg Multivitamins (Hexavitamin) 1 tab PO DAILY [facility] Last Admin: 03/05/18 09:44 Dose: 1 tab Pantoprazole Sodium (Protonix Ec Tab) 40 mg PO DAILY [facility] Last Admin: 03/05/18 09:44 Dose: 40 mg Rosuvastatin Calcium (Crestor) 40 mg PO HS [facility] Last Admin: 03/04/18 21:29 Dose: 40 mg - Labs Labs: 03/05/18 11:00 03/05/18 11:00 PT 13.5 SECONDS (9.7-12.2) H 03/01/18 03:41 INR 1.2 03/01/18 03:41 APTT 37 SECONDS (21-34) H 03/01/18 03:41 - Constitutional Appears: Non-toxic, Chronically Ill - Head Exam Head Exam: NORMOCEPHALIC - Eye Exam Eye Exam: PERRL - ENT Exam ENT Exam: Mucous Membranes Dry - Neck Exam Neck Exam: absent: Lymphadenopathy - Respiratory Exam Respiratory Exam: Decreased Breath Sounds, Clear to Ausculation Bilateral - Cardiovascular Exam Cardiovascular Exam: REGULAR RHYTHM - GI/Abdominal Exam GI & Abdominal Exam: Distended, Soft - Rectal Exam Rectal Exam: Deferred - Exam Exam: NORMAL INSPECTION - Extremities Exam Extremities Exam: absent: Pedal Edema - Back Exam Back Exam: absent: CVA tenderness (L), CVA tenderness (R) - Neurological Exam Neurological Exam: Alert, Awake, Oriented x3 - Psychiatric Exam Psychiatric exam: Normal Mood Assessment and Plan (1) Rheumatoid arthritis Status: Acute (2) Rheumatoid arthritis Status: Acute (3) Dyspnea Status: Acute (4) Pneumonia Status: Acute (5) Respiratory distress Status: Acute - Assessment and Plan (Free Text) Assessment: improving on IV rx ok to d/c to [facility] cont PO rx for 5 days folow up cxr follow up with Dr Mcmillan in office
[2018-03-06] MEDS: Albuterol-Ipratrop 3 mg / 0.5 (3 ml) UD INH SCH ×4 (00:29→11:32)
[2018-03-06] MEDS: Cefepime IV 1 gm in Dextrose 1 GM/50 ML BAG IVPB SCH (02:18)
[2018-03-06] MEDS: (Novolog) Insulin Aspart, Recombinant 100 u/ml 10 ml vial SC SCH ×2 (07:52→12:30)
[2018-03-06 07:57] VITALS: RESP 20; TEMP 97.3; O2SAT 96
[2018-03-06 10:20] VITALS: BP 114/68; PULSE 81
[2018-03-06] MEDS: Azithromycin 500 MG in Sodium Chloride 0.9% 250 ML IVPB SCH (10:20)
[2018-03-06] MEDS: Pantoprazole 40 mg EC Tab PO SCH (10:21)
[2018-03-06] MEDS: Enoxaparin 40 mg Syringe SC SCH (10:21)
[2018-03-06] MEDS: Multiple Vitamins Tab PO SCH (10:21)
--- NOTE | 2018-03-06 10:45 | CP.PCM.PN ---
Subjective - Date & Time of Evaluation Date of Evaluation: 03/06/18 Time of Evaluation: 10:45 - Subjective Subjective: the patient seen and examined Complaining of cough No shortness of breath Afebrile Objective - Vital Signs/Intake and Output Vital Signs (last 24 hours): Temp Pulse Resp BP Pulse Ox 97.3 F L 81 20 114/68 96 03/06/18 07:55 03/06/18 10:20 03/06/18 07:55 03/06/18 10:22 03/06/18 07:55 Intake and Output: 03/06/18 03/06/18 06:59 18:59 Intake Total 500 Output Total 250 Balance 250 - Medications Medications: Current Medications Acetaminophen (Tylenol 325mg Tab) 650 mg PO Q6 PRN PRN Reason: Pain, Mild (1-3) Albuterol/Ipratropium (Duoneb 3 Mg/0.5 Mg (3 Ml) Ud) 3 ml INH RQ4 [facility] Last Admin: 03/06/18 07:49 Dose: 3 ml Aspirin (Aspirin) 325 mg PO DAILY [facility] Last Admin: 03/06/18 10:21 Dose: 325 mg Docusate Sodium (Colace) 100 mg PO TID [facility] Last Admin: 03/06/18 10:21 Dose: 100 mg Donepezil HCl (Aricept) 10 mg PO HS [facility] Last Admin: 03/05/18 21:39 Dose: 10 mg Enoxaparin Sodium (Lovenox) 40 mg SC DAILY [facility] Last Admin: 03/06/18 10:21 Dose: 40 mg Folic Acid (Folic Acid) 1 mg PO DAILY [facility] Last Admin: 03/06/18 10:21 Dose: 1 mg Furosemide (Lasix) 40 mg IVP DAILY [facility] Last Admin: 03/06/18 10:22 Dose: 40 mg Azithromycin 500 mg/ Sodium (Chloride) 250 mls @ 250 mls/hr IVPB DAILY [facility] PRN Reason: Protocol Last Admin: 03/06/18 10:20 Dose: 250 mls/hr Cefepime HCl (Maxipime Iv 1 Gm Premix) 1 gm in 50 mls @ 100 mls/hr IVPB Q12H [facility] PRN Reason: Protocol Last Admin: 03/06/18 02:18 Dose: 100 mls/hr Vancomycin/Sodium Chloride (Vancomycin 1 Gm/Ns 200 Ml) 1 gm in 200 mls @ 133.333 mls/hr IVPB Q24H [facility] PRN Reason: Protocol Last Admin: 03/05/18 17:50 Dose: 133.333 mls/hr Insulin Aspart (Novolog) 0 unit SC ACHS [facility] PRN Reason: Protocol Last Admin: 03/06/18 07:52 Dose: Not Given Magnesium Hydroxide (Milk Of Magnesia) 30 ml PO DAILY PRN PRN Reason: Constipation Memantine (Namenda) 10 mg PO BID [facility] Last Admin: 03/06/18 10:21 Dose: 10 mg Methotrexate (Methotrexate) 2.5 mg PO QWK [facility] Last Admin: 03/01/18 11:01 Dose: 2.5 mg Multivitamins (Hexavitamin) 1 tab PO DAILY [facility] Last Admin: 03/06/18 10:21 Dose: 1 tab Pantoprazole Sodium (Protonix Ec Tab) 40 mg PO DAILY [facility] Last Admin: 03/06/18 10:21 Dose: 40 mg Rosuvastatin Calcium (Crestor) 40 mg PO HS [facility] Last Admin: 03/05/18 21:38 Dose: 40 mg - Labs Labs: 03/05/18 11:00 03/05/18 11:00 PT 13.5 SECONDS (9.7-12.2) H 03/01/18 03:41 INR 1.2 03/01/18 03:41 APTT 37 SECONDS (21-34) H 03/01/18 03:41 Assessment and Plan - Assessment and Plan (Free Text) Assessment: PATIENT SEEN AND EXAMINED AT THE BEDSIDE LUNG SOUND IMPROVE ON ROOM AIR AND NASAL CANULLA DISCUSS WITH DR Jabier CONTRERAS AND DR SUN WHO CLEAR FOR DC ON ABX PLACE UNDER THE SERVICE OF DR Jabier CONTRERAS AT [facility]---CALL FOR ADMITTING ORDER FOLLOW UP WITH DR SUN AND DR FRANCO ---CALL FOR APPOINTMENT CONTINUE HOME MEDICATION ORDER NEW PRESCRIPTION GIVEN levaquin 750 mg PO FOR [address] SUN F/U CXR IN A WEEK ACTIVITY TOLERATED AND FACILITY PROTOCOL CALL DR Jabier CONTRERAS FOR FURTHER ORDER DISCUSS WITH PATIENT WHO AGREE AND VERBALIZED UNDERSTANDING
--- NOTE | 2018-03-06 12:18 | CP.PCM.PN ---
Subjective - Date & Time of Evaluation Date of Evaluation: 03/06/18 Time of Evaluation: 09:30 - Subjective Subjective: clinically same Objective - Vital Signs/Intake and Output Vital Signs (last 24 hours): Temp Pulse Resp BP Pulse Ox 97.3 F L 81 20 114/68 96 03/06/18 07:55 03/06/18 10:20 03/06/18 07:55 03/06/18 10:22 03/06/18 07:55 Intake and Output: 03/06/18 03/06/18 06:59 18:59 Intake Total 500 Output Total 250 Balance 250 - Medications Medications: Current Medications Acetaminophen (Tylenol 325mg Tab) 650 mg PO Q6 PRN PRN Reason: Pain, Mild (1-3) Albuterol/Ipratropium (Duoneb 3 Mg/0.5 Mg (3 Ml) Ud) 3 ml INH RQ4 [facility] Last Admin: 03/06/18 11:32 Dose: 3 ml Aspirin (Aspirin) 325 mg PO DAILY [facility] Last Admin: 03/06/18 10:21 Dose: 325 mg Docusate Sodium (Colace) 100 mg PO TID [facility] Last Admin: 03/06/18 10:21 Dose: 100 mg Donepezil HCl (Aricept) 10 mg PO HS [facility] Last Admin: 03/05/18 21:39 Dose: 10 mg Enoxaparin Sodium (Lovenox) 40 mg SC DAILY [facility] Last Admin: 03/06/18 10:21 Dose: 40 mg Folic Acid (Folic Acid) 1 mg PO DAILY [facility] Last Admin: 03/06/18 10:21 Dose: 1 mg Furosemide (Lasix) 40 mg IVP DAILY [facility] Last Admin: 03/06/18 10:22 Dose: 40 mg Azithromycin 500 mg/ Sodium (Chloride) 250 mls @ 250 mls/hr IVPB DAILY [facility] PRN Reason: Protocol Last Admin: 03/06/18 10:20 Dose: 250 mls/hr Cefepime HCl (Maxipime Iv 1 Gm Premix) 1 gm in 50 mls @ 100 mls/hr IVPB Q12H [facility] PRN Reason: Protocol Last Admin: 03/06/18 02:18 Dose: 100 mls/hr Vancomycin/Sodium Chloride (Vancomycin 1 Gm/Ns 200 Ml) 1 gm in 200 mls @ 133.333 mls/hr IVPB Q24H [facility] PRN Reason: Protocol Last Admin: 03/05/18 17:50 Dose: 133.333 mls/hr Insulin Aspart (Novolog) 0 unit SC ACHS [facility] PRN Reason: Protocol Last Admin: 03/06/18 07:52 Dose: Not Given Magnesium Hydroxide (Milk Of Magnesia) 30 ml PO DAILY PRN PRN Reason: Constipation Memantine (Namenda) 10 mg PO BID [facility] Last Admin: 03/06/18 10:21 Dose: 10 mg Methotrexate (Methotrexate) 2.5 mg PO QWK [facility] Last Admin: 03/01/18 11:01 Dose: 2.5 mg Multivitamins (Hexavitamin) 1 tab PO DAILY [facility] Last Admin: 03/06/18 10:21 Dose: 1 tab Pantoprazole Sodium (Protonix Ec Tab) 40 mg PO DAILY [facility] Last Admin: 03/06/18 10:21 Dose: 40 mg Rosuvastatin Calcium (Crestor) 40 mg PO HS [facility] Last Admin: 03/05/18 21:38 Dose: 40 mg - Labs Labs: 03/05/18 11:00 03/05/18 11:00 PT 13.5 SECONDS (9.7-12.2) H 03/01/18 03:41 INR 1.2 03/01/18 03:41 APTT 37 SECONDS (21-34) H 03/01/18 03:41
--- NOTE | 2018-03-06 12:55 | CP.PCM.PN ---
Subjective - Date & Time of Evaluation Date of Evaluation: 03/06/18 Time of Evaluation: 12:55 Objective - Vital Signs/Intake and Output Vital Signs (last 24 hours): Temp Pulse Resp BP Pulse Ox 97.3 F L 81 20 114/68 96 03/06/18 07:55 03/06/18 10:20 03/06/18 07:55 03/06/18 10:22 03/06/18 07:55 Intake and Output: 03/06/18 03/06/18 06:59 18:59 Intake Total 500 Output Total 250 Balance 250 - Medications Medications: Current Medications Acetaminophen (Tylenol 325mg Tab) 650 mg PO Q6 PRN PRN Reason: Pain, Mild (1-3) Albuterol/Ipratropium (Duoneb 3 Mg/0.5 Mg (3 Ml) Ud) 3 ml INH RQ4 [facility] Last Admin: 03/06/18 11:32 Dose: 3 ml Aspirin (Aspirin) 325 mg PO DAILY [facility] Last Admin: 03/06/18 10:21 Dose: 325 mg Docusate Sodium (Colace) 100 mg PO TID [facility] Last Admin: 03/06/18 10:21 Dose: 100 mg Donepezil HCl (Aricept) 10 mg PO HS [facility] Last Admin: 03/05/18 21:39 Dose: 10 mg Enoxaparin Sodium (Lovenox) 40 mg SC DAILY [facility] Last Admin: 03/06/18 10:21 Dose: 40 mg Folic Acid (Folic Acid) 1 mg PO DAILY [facility] Last Admin: 03/06/18 10:21 Dose: 1 mg Furosemide (Lasix) 40 mg IVP DAILY [facility] Last Admin: 03/06/18 10:22 Dose: 40 mg Azithromycin 500 mg/ Sodium (Chloride) 250 mls @ 250 mls/hr IVPB DAILY [facility] PRN Reason: Protocol Last Admin: 03/06/18 10:20 Dose: 250 mls/hr Cefepime HCl (Maxipime Iv 1 Gm Premix) 1 gm in 50 mls @ 100 mls/hr IVPB Q12H [facility] PRN Reason: Protocol Last Admin: 03/06/18 02:18 Dose: 100 mls/hr Vancomycin/Sodium Chloride (Vancomycin 1 Gm/Ns 200 Ml) 1 gm in 200 mls @ 133.333 mls/hr IVPB Q24H [facility] PRN Reason: Protocol Last Admin: 03/05/18 17:50 Dose: 133.333 mls/hr Insulin Aspart (Novolog) 0 unit SC ACHS [facility] PRN Reason: Protocol Last Admin: 03/06/18 12:30 Dose: 1 units Magnesium Hydroxide (Milk Of Magnesia) 30 ml PO DAILY [facility] PRN Reason: Constipation Memantine (Namenda) 10 mg PO BID [facility] Last Admin: 03/06/18 10:21 Dose: 10 mg Methotrexate (Methotrexate) 2.5 mg PO QWK [facility] Last Admin: 03/01/18 11:01 Dose: 2.5 mg Multivitamins (Hexavitamin) 1 tab PO DAILY [facility] Last Admin: 03/06/18 10:21 Dose: 1 tab Pantoprazole Sodium (Protonix Ec Tab) 40 mg PO DAILY [facility] Last Admin: 03/06/18 10:21 Dose: 40 mg Rosuvastatin Calcium (Crestor) 40 mg PO HS [facility] Last Admin: 03/05/18 21:38 Dose: 40 mg - Labs Labs: 03/05/18 11:00 03/05/18 11:00 PT 13.5 SECONDS (9.7-12.2) H 03/01/18 03:41 INR 1.2 03/01/18 03:41 APTT 37 SECONDS (21-34) H 03/01/18 03:41 Assessment and Plan - Assessment and Plan (Free Text) Assessment: PLACE UNDER THE SERVICE OF DR Jabier CONTRERAS AT [facility]---CALL FOR ADMITTING ORDER FOLLOW UP WITH DR SUN AND DR FRANCO ---CALL FOR APPOINTMENT CONTINUE HOME MEDICATION ORDER NEW PRESCRIPTION GIVEN levaquin 750 mg PO FOR [address] SUN F/U CXR IN A WEEK ACTIVITY TOLERATED AND FACILITY PROTOCOL CALL DR Jabier CONTRERAS FOR FURTHER ORDER
--- NOTE | 2018-03-06 14:02 | CP.PCM.PN ---
Subjective - Date & Time of Evaluation Date of Evaluation: 03/06/18 Time of Evaluation: 07:00 - Subjective Subjective: the patient seen and examined Complaining of cough No shortness of breath Afebrile Objective - Vital Signs/Intake and Output Vital Signs (last 24 hours): Temp Pulse Resp BP Pulse Ox 97.3 F L 81 20 114/68 96 03/06/18 07:55 03/06/18 10:20 03/06/18 07:55 03/06/18 10:22 03/06/18 07:55 Intake and Output: 03/06/18 03/06/18 06:59 18:59 Intake Total 500 Output Total 250 Balance 250 - Medications Medications: Current Medications Acetaminophen (Tylenol 325mg Tab) 650 mg PO Q6 PRN PRN Reason: Pain, Mild (1-3) Albuterol/Ipratropium (Duoneb 3 Mg/0.5 Mg (3 Ml) Ud) 3 ml INH RQ4 [facility] Last Admin: 03/06/18 11:32 Dose: 3 ml Aspirin (Aspirin) 325 mg PO DAILY [facility] Last Admin: 03/06/18 10:21 Dose: 325 mg Docusate Sodium (Colace) 100 mg PO TID [facility] Last Admin: 03/06/18 10:21 Dose: 100 mg Donepezil HCl (Aricept) 10 mg PO HS [facility] Last Admin: 03/05/18 21:39 Dose: 10 mg Enoxaparin Sodium (Lovenox) 40 mg SC DAILY [facility] Last Admin: 03/06/18 10:21 Dose: 40 mg Folic Acid (Folic Acid) 1 mg PO DAILY [facility] Last Admin: 03/06/18 10:21 Dose: 1 mg Furosemide (Lasix) 40 mg IVP DAILY [facility] Last Admin: 03/06/18 10:22 Dose: 40 mg Azithromycin 500 mg/ Sodium (Chloride) 250 mls @ 250 mls/hr IVPB DAILY [facility] PRN Reason: Protocol Last Admin: 03/06/18 10:20 Dose: 250 mls/hr Cefepime HCl (Maxipime Iv 1 Gm Premix) 1 gm in 50 mls @ 100 mls/hr IVPB Q12H [facility] PRN Reason: Protocol Last Admin: 03/06/18 02:18 Dose: 100 mls/hr Vancomycin/Sodium Chloride (Vancomycin 1 Gm/Ns 200 Ml) 1 gm in 200 mls @ 133.333 mls/hr IVPB Q24H [facility] PRN Reason: Protocol Last Admin: 03/05/18 17:50 Dose: 133.333 mls/hr Insulin Aspart (Novolog) 0 unit SC ACHS [facility] PRN Reason: Protocol Last Admin: 03/06/18 12:30 Dose: 1 units Magnesium Hydroxide (Milk Of Magnesia) 30 ml PO DAILY PRN PRN Reason: Constipation Memantine (Namenda) 10 mg PO BID [facility] Last Admin: 03/06/18 10:21 Dose: 10 mg Methotrexate (Methotrexate) 2.5 mg PO QWK [facility] Last Admin: 03/01/18 11:01 Dose: 2.5 mg Multivitamins (Hexavitamin) 1 tab PO DAILY [facility] Last Admin: 03/06/18 10:21 Dose: 1 tab Pantoprazole Sodium (Protonix Ec Tab) 40 mg PO DAILY [facility] Last Admin: 03/06/18 10:21 Dose: 40 mg Rosuvastatin Calcium (Crestor) 40 mg PO HS [facility] Last Admin: 03/05/18 21:38 Dose: 40 mg - Labs Labs: 03/05/18 11:00 03/05/18 11:00 PT 13.5 SECONDS (9.7-12.2) H 03/01/18 03:41 INR 1.2 03/01/18 03:41 APTT 37 SECONDS (21-34) H 03/01/18 03:41 - Head Exam Head Exam: ATRAUMATIC - ENT Exam ENT Exam: Mucous Membranes Moist - Neck Exam Neck Exam: Normal Inspection - Respiratory Exam Respiratory Exam: Clear to Ausculation Bilateral - Cardiovascular Exam Cardiovascular Exam: REGULAR RHYTHM - GI/Abdominal Exam GI & Abdominal Exam: Soft Assessment and Plan (1) Pneumonia Assessment & Plan: Switch to p.o. antibiotics Stable from pulmonary standpoin Status: Acute (2) Respiratory distress Status: Acute
== END 2018-03-06 14:05 | disposition home or self-care (01) | DRG 194 ==
LOC: C.ER 02:26 → C.5S 05:15
PROVIDERS: ADMIT Internal Medicine Nephrology; ATTEND Internal Medicine Nephrology
PROC: 5A09457 Assistance with Respiratory Ventilation, 24-96 Consecutive Hours, Continuous Positive Airway Pressure (ICD-10-PCS; principal; 2018-03-01)
DX: J18.9 Pneumonia, unspecified organism (principal); R78.81 Bacteremia; M06.9 Rheumatoid arthritis, unspecified; Z79.4 Long term (current) use of insulin; F03.90 Unspecified dementia, unspecified severity, without behavioral disturbance, psychotic disturbance, mood disturbance, and anxiety; E78.5 Hyperlipidemia, unspecified; I10 Essential (primary) hypertension; E10.9 Type 1 diabetes mellitus without complications; I11.0 Hypertensive heart disease with heart failure; I50.9 Heart failure, unspecified